=== PATIENT | female | born 1965 | race Caucasian/White ===

== ENCOUNTER 2024-04-30 01:12 | Emergency (ER) | payer OTHER, SELFPAY ==
[2024-04-30 01:25] VITALS: BP 119/87; PULSE 97; RESP 20; TEMP 36.6; O2SAT 99; BMI 37.9
--- NOTE | 2024-04-30 01:40 | ED.NURSE ---
pt given paper scrubs to wear since her clothes were covered in blood.
--- NOTE | 2024-04-30 02:11 | CRLHL7_ITS ---
For Patients: As a result of the Century Cures Act, medical imaging exams and procedure reports are released immediately into your electronic medical record. You may view this report before your referring provider. If you have questions, please contact your health care provider. INDICATION: Nausea, LLQ abdominal pain. TECHNIQUE: CT abdomen and pelvis acquired with 100 cc Omnipaque 370 IV contrast. COMPARISON: None. FINDINGS: Lower chest: Unremarkable. Liver: Left lobe cyst. Unremarkable in size and attenuation. No suspicious masses. Gallbladder and bile ducts: Cholecystectomy. No biliary dilatation. Pancreas: Unremarkable. No mass or inflammation. Spleen: Unremarkable. Normal in size. No masses. Adrenal glands: Unremarkable. No nodules. Kidneys: Unremarkable. No suspicious masses, stones, or hydronephrosis. GI tract: Multiple colonic diverticuli, but no substantial pericolonic inflammatory changes. Normal in caliber. No sign of mass or inflammation. Normal appendix. Vasculature: Abdominal aorta is normal in caliber. Mesenteric arteries are patent. Lymph nodes: No lymphadenopathy. Peritoneum/Abdominal Wall: Unremarkable. No sign of mass or infiltration. No free air or significant free fluid. Pelvis: Unremarkable. Bones: Unremarkable for age. IMPRESSION: No acute findings. Multiple colonic diverticuli, but no definite evidence of acute diverticulitis. Please note that all CT scans at this facility use dose modulation, iterative reconstruction, and/or weight-based dosing when appropriate to reduce radiation dose to as low as reasonably achievable. Dictated by Yonathan Shetty MD @ 04/30/2024 3:35:36 AM (Electronically Signed)
--- OUTSIDE RECORDS SUMMARY | 2024-04-30 02:27 | XMS_ITS | Encounter Summary ---
Author Organization [place] Address [address] [place] [address]. [place] [address] Care Team Providers Care Hull Inspector Name Role Phone Naomi Ramirez MD Primary Care Provider [phone] Naomi Ramirez MD Unavailable [phone] Fermín Casey PA-C Unavailable [phone] Iam Elkins PA-C Unavailable Severo Pritha PA-C Unavailable Severo Prithjae PA-C Unavailable Reason for Visit * Reason Comments Medication Refill Encounter Details Date Type Department Care Team (Late st Contact Info) Description 04/13/2024 [facility] [id number] [place] [id number] [place] [address] [place], [place] [id number] Medication Refill Social History Tobacco Use Types Packs/Day Years Used Date Smoking Tobacco: Never Smokeless Tobacco: Never Alcohol Use Standard Drinks/Week Comments Not Currently 2.5 (1 standard drink = 0.6 oz p ure alcohol) Social Connection and Isolat ion Panel [NHANES] Answer Date Recorded In a typical week, how many times do you talk on the phone with family, friends, or neighbors? More than three times a week 08/03/2023 How often do you get togethe r with friends or relatives? Once a week 08/03/2023 How often do you attend chur or buddhism services? More than 4 times per year 08/03/2023 Do you belong to any clubs o r organizations such as gnosticist groups, unions, fraternal or athletic groups, or school groups? Yes 08/03/2023 How often do you attend meet ings of the clubs or organizations you belong to? More than 4 times per year 08/03/2023 Are you , , di vorced, , never , or living with a partner? 08/03/2023 AUDIT-C Answer Date Recorded Q1: How often do you have a drink containing alcohol? Never 08/03/2023 Q2: How many drinks containi ng alcohol do you have on a typical day when you are drinking? Patient does not drink Q3: How often do you have si x or more drinks on one occasion? Never 08/03/2023 PHQ-2 Answer Date Recorded PHQ-2 Score 0 08/06/2023 [facility] - Occupational Stress Questionnaire Answer Date Recorded Do you feel stress - tense, restless, nervous, or anxious, or unable to sleep at night because your mind is troubled all the time - these days? Only a little 08/03/2023 Exercise Vital Sign Answer Date Recorde d On average, how many days pe r week do you engage in moderate to strenuous exercise (like a brisk walk)? 3 days 08/03/2023 On average, how many minutes do you engage in exercise at this level? 30 min 08/03/2023 Adolescent Education Answer Date Record ed Getting School Help Needed Not on file 04/14 Food Insecurity Answer Date Recorded Within the past 12 months, d id you worry that your food would run out before you got money to buy more? No 08/05/2023 Within the past 12 months, d id the food you bought just not last and you didn? t have money to get more? No 08/05/2023 Housing Stability Answer Date Recorded Do you have housing? (Housin g is defined as stable permanent housing and does not include staying ouside in a car, in a tent, in an abandoned building, in an overnight skilled nursing, or couch-surfing.) Yes 08/05/2023 Are you worried about losing your housing? No 08/05/2023 Financial Resource Strain Answer Date R ecorded Within the past 12 months, h ave you or your family members you live with been unable to get utilities (heat, electricity) when it was really needed? No 08/05/2023 Transportation Needs Answer Date Record ed Within the past 12 months, h as lack of transportation kept you from medical appointments, getting your medicines, non-medical meetings or appointments, work, or from getting things that you need? No 08/05/2023 Interpersonal Safety Answer Date Record ed Do you feel physically and e motionally safe where you currently live? Yes 08/06/2023 Within the past 12 months, h ave you been hit, slapped, kicked or otherwise physically hurt by someone? No 08/06/2023 Within the past 12 months, h ave you been humiliated or emotionally abused in other ways by your partner or ex-partner? No 08/06/2023 Sex and Gender Information Value Date Recorded Sex Assigned at Female 11/22/2021 5:35 PM CDT Gender Identity Female 11/22/2021 5:35 PM CDT Sexual Orientation Straight 11/22/2021 5: 35 PM CDT documented as of this encounter Plan of Treatment Upcoming Encounters Date Type Department Care Team (Late st Contact Info) Description 08/07/2024 4:30 PM RADIATION ENGINEER Office Visit [address] [phone] [place] [address] [place] [address] documented as of this encounter Visit Diagnoses Diagnosis Gastroesophageal reflux disease, unspecified whether esophagitis present documented in this encounter Care Teams Hull Inspector Relationship Specialty [place] [address] [place] [address] PCP - General Family Medicine 01/18/21 [place] [address] [place] [id number] Assigned PCP 01/23/21 Fermín Casey PA-C [id number] [place] [address] Physician Yeast Stacker Gastroenterology 09/21/22 Iam Elkins PA-C [id number] [place] [address] Physician Yeast Stacker Gastroenterology 11/10/22 Iam Elkins PA-C [id number] [place] [address] Physician Yeast Stacker Gastroenterology 02/27/23 Iam Elkins PA-C [id number] [place] [address] Assigned Gastroenterology Provider 08/16/23 04/13/24 documented as of this encounter
--- OUTSIDE RECORDS SUMMARY | 2024-04-30 02:27 | XMS_ITS | Clinical Summary ---
Author Organization [facility] Address [address] [place] [id number] Care Team Providers Care Char House Supervisor Name Role Phone Naomi Ramirez MD Primary Care Provider Naomi Ramirez MD Unavailable [phone] Fermín Casey-Tamela Unavailable [phone] Iam Elkins-Tamela Unavailable Iam Elkins PA-C Unavailable Allergies Active Allergy Reactions Criticality Noted Date Comments No Known Drug Allergy 11/19/2002 Medications Medication Sig Dispensed Refills Start Date End Date Status rizatriptan (MAXALT) 10 MG tablet Take 1 tablet (10 mg) by mouth at onset of headache for migraine 30 tablet 02/26/2014 Active cetirizine (ZYRTEC) 10 MG tablet Take 10 mg by mouth as needed Active ferrous sulfate (FEROSUL) 325 (65 Fe) MG tablet Take 1 tablet by mouth daily 07/20/2022 Active amitriptyline (ELAVIL) 50 MG tablet Take 50 mg by mouth At Bedtime Active propranolol (INDERAL) 20 MG tablet Take 20 mg by mouth every evening Active acetaminophen (TYLENOL) 500 MG tabletIndications :Ureteral stone Take 2 tablets (1,000 mg) by mouth every 6 hours as needed for mild pain 100 tablet 09/26/2022 Active ibuprofen (ADVIL/MOTRIN) 800 MG tabletIndications :Ureteral stone Take 1 tablet (800 mg) by mouth every 6 hours as needed 50 tablet 09/26/2022 Active levothyroxine (SYNTHROID/LEVOTH ROID) 100 MCG tabletIndications :Karson's thyroiditis Take 1 tablet (100 mcg) by mouth daily 90 tablet 3 08/06/2023 Active Continuous Blood Gluc Sensor (FREESTYLE HAL 3 SENSOR) MISCIndications:P rediabetes 1 Units every 14 days 6 each 1 08/06/2023 Active Continuous Blood Gluc Manager Web Application (FREESTYLE HAL 3 READER) DEVIIndications:P rediabetes 1 Units daily 1 each 08/06/2023 Active omeprazole (PRILOSEC) [address] capsuleIndication s:Gastroesophagea l reflux disease, unspecified whether esophagitis present TAKE 1 CAPSULE BY MOUTH EVERY DAY 90 capsule 04/14/2024 Active omeprazole (PRILOSEC) [address] capsuleIndication s:Gastroesophagea l reflux disease, unspecified whether esophagitis present Take 1 capsule (20 mg) by mouth daily 90 capsule 01/16/2024 Discontinued Active Problems Problem Noted Date Diagnosed Date Morbid obesity 01/19/2022 Pre-diabetes 07/05/2019 Karson's thyroiditis 02/10/2015 Overview: Following with [facility] in [place] Chronic headache disorder 03/17/2014 ACP (advance care planning) 01/12/2011 Overview: Advance Care Planning 12/15/2014: ACP Review and Resources Provided: Reviewed chart for advance care plan. Amie Solorio has no plan or code status on file however states presence of ACP document. Copy requested. Confirmed code status reflects current choices pending receipt of document/advance care plan review. Confirmed/documented legally designated decision maker(s). Added by Marleny Felipe Esophageal reflux 04/07/2006 Allergic rhinitis 11/19/2002 Overview: Problem list name updated by automated process. Provider to review Resolved Problems Problem Noted Date Diagnosed Date Resolved Date Health Halfway 10/31/2012 01/18/2021 Overview: State Tier Level: Tier 2 Status: NA Transformation Lead: See Letters for H Care Plan Endometriosis of ovary 07/08/201201/18 Essential hypertension, benign 05/23/2012 01/19/2022 CARDIOVASCULAR SCREENING; LD L GOAL LESS THAN 160 05/22/2010 01/18/2021 Esophageal reflux 11/16/2004 11/17/2004 Contusion of part of lower limb 11/19/2002 08/12/2009 Overview: Problem list name updated by automated process. Provider to review Contusion of chest wall 11/19/200207/24 Headache 11/19/2002 03/17/2014 Overview: Problem list name updated by automated process. Provider to review Severe obesity (BMI >= 40) 11/19/2002 0 01/19/2022 Encounters Date Type Department Care Team Description 04/14/2024 3:28 PM CDT - 04/14/2024 11:59 PM CDT Hospital Encounter [facility] [address], [address] [place] [phone] Naomi Ramirez MD Visit for screening mammogram Discharge Disposition: Home or Self Care 04/14/2024 Travel 04/13/[address] [phone] Naomi Ramirez MD Medication Refill 04/11/2024 Travel from Last 3 Months Immunizations Name Administration Dates Next Due COVID-19 MONOVALENT 12+ (Pfizer) 06/10/2021,09/20,09/17/2020 Influenza (H1N1) 08/12/2009 Influenza (IIV3) PF 05/02/2021, 2,04/22/2011, 010,05/11/2008,06/14/2007,06/19/2006,04/2003 Influenza Vaccine >6 months,quad, PF 11/2022,05/02/2022,05/16/2020, 019,04/23/2018,04/18/2016,04/28/2015,,04/21/2013 TD,PF 7+ (Teniva) 06/24/2018 TDAP Vaccine (Adacel) 03/17/2008 Varicella 10/28/1997,11/30/1988 Family History Medical History Relation Comments Heart Disease Brother 3 ascending aortic aneurysm Hypertension Father Glaucoma Maternal Grandfather Macular Degeneration Maternal Grandfather Macular Degeneration Maternal Grandmother Asthma Mother Hypertension Mother Breast Cancer No family hx of C.A.D. No family hx of Cancer - colorectal No family hx of Diabetes No family hx of Relation Status Comments Brother 1 Alive Brother 2 Alive Brother 3 Daughter 1 Alive Daughter 2 Alive Father Alive Maternal Grandfather Maternal Grandmother Mother Alive Social History Tobacco Use Types Packs/Day Years Used Date Smoking Tobacco: Never Smokeless Tobacco: Never Tobacco Cessation:Counseling Given: Not Answered Alcohol Use Standard Drinks/Week Comments Not Currently [...] 08/03/2023 How often do you attend chur ch or methodist services? More than 4 times per year 08/03/2023 Do you belong to any clubs o r organizations such as scientology groups, unions, fraternal or athletic groups, or [...] Answer Date Recorded PHQ-2 Score 0 08/06/2023 [facility] - Occupational Stress [...] Answer Date Recorded Do you have housing? (Louis g is defined as stable permanent housing and does not include staying ouside in a car, in a tent, in an abandoned building, in an overnight long term, or couch-surfing.) Yes 08/05/2023 Are you worried [...] Orientation Straight 11/22/2021 5: 35 PM CDT Last Filed Vital Signs Vital Sign Reading Time Taken Comments Blood Pressure 134/83 08/13/2023 10:02 AM GIMP BUTTONHOLE MACHINE OPERATOR Pulse 65 08/13/2023 10:02 AM GIMP BUTTONHOLE MACHINE OPERATOR Temperature 36.8 ??C (98.2 ??F) 08/13/2023 10:02 AM C Respiratory Rate 18 08/13/2023 10:02 AM GIMP BUTTONHOLE MACHINE OPERATOR Oxygen Saturation 100% 08/13/2023 10:02 AM GIMP BUTTONHOLE MACHINE OPERATOR Inhaled Oxygen Concentration - - Weight 108 kg (238 lb) 08/13/2023 10:02 AM GIMP BUTTONHOLE MACHINE OPERATOR Height 166.4 cm (5' 5.5) 08/06/2023 1:14 PM GIMP BUTTONHOLE MACHINE OPERATOR Body Mass Index 39 08/06/2023 1:14 PM GIMP BUTTONHOLE MACHINE OPERATOR Plan of Treatment Upcoming Encounters Date Type Department Care Team (Late st Contact Info) Description 08/07/2024 4:30 PM GIMP BUTTONHOLE MACHINE OPERATOR Office Visit [facility] [id number] [place] [phone] [place] [address] [place], [place] [phone] Health Maintenance Due Date Last Done Comments CT COLONOGRAPHY 1965 FIT 1965 FLEX SIG 1965 sDNA (Cologuard) 1965 ZOSTER IMMUNIZATION (1 of 2) 2015 ANNUAL REVIEW OF HM ORDERS 09/22/2023 09/21/2022, COVID-19 Vaccine ( season) 2024 06/10/2021, 10/06/2020, 09/17/2020 INFLUENZA VACCINE (#1) 2024 3, 05/02/2022, 05/02/2021, Additional history exists TSH W/FREE T4 REFLEX 08/06/2024 08/06/2023, 08/06/2023, 09/11/2022, Additional history exists YEARLY PREVENTIVE VISIT 08/06/2024 08/06/19 24, 07/05/2020, 07/04/2019, Additional history exists MAMMO SCREENING 04/14/2025 04/14/2024, 03/24, 12/27/2021, Additional history exists COLONOSCOPY 11/06/2025 11/06/2022, 10/21, 11/06/2022, Additional history exists COLORECTAL CANCER SCREENING 11/06/2025 GLUCOSE 08/13/2026 08/13/2023, 07/23, 09/27/2022, Additional history exists DTAP/TDAP/TD IMMUNIZATION (3 - Td or Tdap) 06/24/2028 06/24/2018, 03/17/2008 ADVANCE CARE PLANNING 08/06/2028 08/06/2023 , 12/15/2014, 01/12/2011, Additional history exists LIPID 08/06/2028 08/06/2023, 08/24, 07/05/2020, Additional history exists RSV VACCINE (1 - 1-dose 75+ series) 01/23/2040 PAP Discontinued 03/07/1995 HEPATITIS C SCREENING Completed 06/29/2018 HIV SCREENING Completed 06/29/2018 PHQ-2 (once per calendar year) Completed 08/06/2023, 09/21/2022, 08/28/2022, Additional history exists HEPATITIS B IMMUNIZATION Discontinued HPV IMMUNIZATION Aged Out No longer e ligible based on patient's age to complete this topic MENINGITIS IMMUNIZATION Aged Out No l onger eligible based on patient's age to complete this topic Pneumococcal Vaccine: Pediatrics (0 to 5 Years) and At-Risk Patients (6 to 64 Years) Aged Out No longer eligible based on patient's age to complete this topic RSV MONOCLONAL ANTIBODY Aged Out No l onger eligible based on patient's age to complete this topic Procedures Procedure Name Priority Date/Time Associated Diagnosis Comments MA SCREENING BILATERAL W/ DEVENDRA Routine 04/14/2024 4:18 PM CDT Visit for screening mammogram COMPREHENSIVE METABOLIC PANEL STAT 08/13/2023 10:34 AM GIMP BUTTONHOLE MACHINE OPERATOR TSH Routine 08/06/2023 2:00 PM GIMP BUTTONHOLE MACHINE OPERATOR Karson's thyroiditis LIPID REFLEX TO DIRECT LDL PANEL Routine 08/06/2023 2:00 PM GIMP BUTTONHOLE MACHINE OPERATOR Routine general medical examination at a health care facility COLONOSCOPY - HIM SCAN 12:00 AM CDT HIV 1/2 AGN JOSESITO 4TH GEN WITH REFLEX ([facility]) Routine 06/29/2018 9:17 AM GIMP BUTTONHOLE MACHINE OPERATOR Routine history and physical examination of adult HEPATITIS C ANTIBODY Routine 06/29/2018 9:17 AM GIMP BUTTONHOLE MACHINE OPERATOR Routine history and physical examination of adult ABSTRACT PAP (HIM EXTERNAL RESULT) Routine 03/07/1995 from Last 3 Months or Most Recently Relevant to Health Maintenance Results * MA Screen Bilateral w/Devendra (04/14/2024 4:18 PM CDT) Anatomical Region Laterality Modality Breast Bilateral Mammography Impressions 04/15/2024 8:05 AM CDT IMPRESSION: ACR BI-RADS Category 1: Negative BREAST CANCER SCREENING RECOMMENDATION: Routine yearly mammography beginning at age 40 or as discussed with your provider. The results and recommendations of this examination will be communicated to the patient. Jovi Hearn MD Narrative 04/15/2024 8:05 AM CDT BILATERAL FULL FIELD DIGITAL SCREENING MAMMOGRAM WITH TOMOSYNTHESIS Performed on: 04/14/24 Compared to: 04/11/2023 and 09/10/2015 Technique: ??This study was evaluated with the assistance of Computer-Aided Detection. ??Breast Tomosynthesis was used in interpretation. Findings: There are scattered areas of fibroglandular density. ??There is no radiographic evidence of malignancy. Naomi Ramirez MD IMG MAMMOGRAPHY O RDERABLES * (ABNORMAL) Comprehensive metabolic panel (08/13/2023 10:34 AM GIMP BUTTONHOLE MACHINE OPERATOR) Sodium 138 135 - 145 mmol/L 08/13/2023 11:06 AM GIMP BUTTONHOLE MACHINE OPERATOR [facility] Comment:Reference intervals for this test were updated on 04/17/2023 to more accurately reflect our healthy population. There may be differences in the flagging of prior results with similar values performed with this method. Interpretation of those prior results can be made in the context of the updated reference intervals. Potassium 4.5 3.4 - 5.3 mmol/L 08/13/2023 11:06 AM [facility] Carbon Dioxide (CO2) 30(H) 22 - 29 mmol/L 08/13/2023 11:06 AM [facility] Anion Gap 7 7 - 15 mmol/L 08/13/2023 11:06 AM [facility] Urea Nitrogen 16.9 6.0 - 20.0 mg/dL 08/13/2023 11:06 AM [facility] Creatinine 0.69 0.51 - 0.95 mg/dL 08/13/2023 11:06 AM [facility] GFR Estimate >90 >60 mL/min/1. 73m2 08/13/2023 11:06 AM [facility] Calcium 9.1 8.6 - 10.0 mg/dL 08/13/2023 11:06 AM [facility] Chloride 101 98 - 107 mmol/L 08/13/2023 11:06 AM [facility] Glucose 96 70 - 99 mg/dL 08/13/2023 11:06 AM [facility] Alkaline Phosphatase 78 40 - 150 U/L 08/13/2023 11:06 AM [facility] Comment:Reference intervals for this test were updated on 06/05/2023 to more accurately reflect our healthy population. There may be differences in the flagging of prior results with similar values performed with this method. Interpretation of those prior results can be made in the context of the updated reference intervals. AST 17 0 - 45 U/L 08/13/2023 11:06 AM [facility] Comment:Reference intervals for this test were updated on 01/01/2023 to more accurately reflect our healthy population. There may be differences in the flagging of prior results with similar values performed with this method. Interpretation of those prior results can be made in the context of the updated reference intervals. ALT 13 0 - 50 U/L 08/13/2023 11:06 AM [facility] Comment:Reference intervals for this test were updated on 01/01/2023 to more accurately reflect our healthy population. There may be differences in the flagging of prior results with similar values performed with this method. Interpretation of those prior results can be made in the context of the updated reference intervals. Protein Total 7.4 6.4 - 8.3 g/dL 08/13/2023 11:06 AM [facility] Albumin 4.3 3.5 - 5.2 g/dL 08/13/2023 11:06 AM GIMP BUTTONHOLE MACHINE OPERATOR [facility] Bilirubin Total 0.2 <=1.2 mg/dL 08/13/2023 11:06 AM GIMP BUTTONHOLE MACHINE OPERATOR [facility] Blood STRUCTURE OF RIGHT UPPER LIMB / Unknown Venipuncture / Unknown 08/13/2023 10:34 AM GIMP BUTTONHOLE MACHINE OPERATOR 08/13/2023 10:43 AM GIMP BUTTONHOLE MACHINE OPERATOR Chito Madsen MD LAB - BLOOD ORDERABLES [facility] [address] Lab (1st floor, no room number) [place] [address], [facility] [phone] * TSH (08/06/2023 2:00 PM GIMP BUTTONHOLE MACHINE OPERATOR) TSH 2.60 0.30 - 4.20 uIU/mL 08/06/2023 8:04 PM GIMP BUTTONHOLE MACHINE OPERATOR [facility] Blood BLOOD SPECIMEN / Unknown Venipuncture / Unknown 08/06/2023 2:00 PM GIMP BUTTONHOLE MACHINE OPERATOR 08/06/2023 2:02 PM GIMP BUTTONHOLE MACHINE OPERATOR Naomi Ramirez MD LAB - BLOOD ORDER NIKKY [facility] [place] [facility] [address] [facility] [address], [address] [address], [place] [phone] * (ABNORMAL) Lipid panel reflex to direct LDL Fasting (08/06/2023 2:00 PM GIMP BUTTONHOLE MACHINE OPERATOR) Cholesterol 219(H) <200 mg/dL 08/06/2023 8:04 PM GIMP BUTTONHOLE MACHINE OPERATOR [facility] Triglycerides 71 <150 mg/dL 08/06/2023 8:04 PM GIMP BUTTONHOLE MACHINE OPERATOR [facility] Direct Measure HDL 56 >=50 mg/dL 08/06/2023 8:04 PM GIMP BUTTONHOLE MACHINE OPERATOR [facility] LDL Cholesterol Calculated 149(H) <=100 mg/dL 08/06/2023 8:04 PM GIMP BUTTONHOLE MACHINE OPERATOR [facility] Non HDL Cholesterol 163(H) <130 mg/dL 08/06/2023 8:04 PM GIMP BUTTONHOLE MACHINE OPERATOR [facility] Patient Fasting > 8hrs? Yes 08/06/2023 8:04 PM GIMP BUTTONHOLE MACHINE OPERATOR [facility] Blood BLOOD SPECIMEN / Unknown Venipuncture / Unknown 08/06/2023 2:00 PM GIMP BUTTONHOLE MACHINE OPERATOR 08/06/2023 2:02 PM GIMP BUTTONHOLE MACHINE OPERATOR Narrative [facility] - 08/06/2023 8:04 PM GIMP BUTTONHOLE MACHINE OPERATOR Cholesterol Desirable: ??<200 mg/dL Triglycerides Normal: ??Less than 150 mg/dL Borderline High: ??150-199 mg/dL High: ??200-499 mg/dL Very High: ??Greater than or equal to 500 mg/dL Direct Measure HDL Female: ??Greater than or equal to 50 mg/dL Male: ??Greater than or equal to 40 mg/dL LDL Cholesterol Desirable: ??<100mg/dL Above Desirable: ??100-129 mg/dL Borderline High: ??130-159 mg/dL High: ??160-189 mg/dL Very High: ??>= 190 mg/dL Non HDL Cholesterol Desirable: ??130 mg/dL Above Desirable: ??130-159 mg/dL Borderline High: ??160-189 mg/dL High: ??190-219 mg/dL Very High: ??Greater than or equal to 220 mg/dL Naomi Ramirez MD LAB - BLOOD ORDER NIKKY [facility] [address] [facility], [address] [phone], [facility] [phone] * COLONOSCOPY - HIM SCAN (11/06/2022 12:00 AM CDT) 11/06/2022 Provider Outside PROCEDURES * HIV 1/2 Agn Josesito 4th Gen w Reflex ([facility]) (06/29/2018 9:17 AM GIMP BUTTONHOLE MACHINE OPERATOR) HIV 1/2 Agn Josesito 4th Gen With Reflex NON-REACT SESAR NON-REACT SESAR [facility] Comment: HIV-1 antigen and HIV-1/HIV-2 antibodies were not detected. There is no laboratory evidence of HIV infection. PLEASE NOTE: This information has been disclosed to you from records whose confidentiality may be protected by state law. ??If your state requires such protection, then the state law prohibits you from making any further disclosure of the information without the specific written consent of the person to whom it pertains, or as otherwise permitted by law. A general authorization for the release of medical or other information is NOT sufficient for this purpose. ?? For additional information please refer to http://education.[employer]/faq/ITB573 (This link is being provided for informational/ educational purposes only.) The performance of this assay has not been clinically validated in patients less than 2 years old. Blood specimen (specimen) 06/29/2018 9:17 AM GIMP BUTTONHOLE MACHINE OPERATOR 06/30/2018 1:10 AM GIMP BUTTONHOLE MACHINE OPERATOR Narrative Resulting Agency Comment Performing Organization Information: ? CB ? [facility] ? [address] [place] [address] ? Maldonado Batista M.D. Briana Faulkner MD LAB - NON-BEAKER BL OOD LABS Performing Organization Address City/[facility]/ZIP Co de Phone Number [facility] [address] [place] [address] * Hepatits C antibody ([facility]) (06/29/2018 9:17 AM GIMP BUTTONHOLE MACHINE OPERATOR) HCV Antibody NON-REACTI VE NON-REACTI VE [facility] SIGNAL TO CUT OFF - [facility] 0.01 <1.00 [facility] Blood specimen (specimen) 06/29/2018 9:17 AM GIMP BUTTONHOLE MACHINE OPERATOR 06/30/2018 1:10 AM GIMP BUTTONHOLE MACHINE OPERATOR Narrative Resulting Agency Comment Performing Organization Information: ? CB ? [facility] ? [address] [place] [address] ? Maldonado Batista M.D. Briana Faulkner MD LAB - BLOOD ORDERAB LES Performing Organization Address City/[facility]/ZIP Co de Phone Number [facility] [address] [place] [address] * ABSTRACT PAP-NO CHARGE (03/07/1995) Sarah Johnson LAB - HIM EXTERNAL R ESULT from Last 3 Months or Most Recently Relevant to Health Maintenance Advance Directives For more information, please contact: [phone] Documents on File Type Date Recorded Patient Flight Simulator Teacher Expl anation Advance Directives and Living Will 01/12/2011 * Full Code (Latest Code Status on File) Date Activated Date Inactivated Comments 09/26/2022 7:26 AM 09/27/2022 12:30 PM All basic and advanced life-sustaining interventions are performed as appropriate Question Answer Comments Code status determined by: Discussion with patie nt/ legal decision maker * Full Code Date Activated Date Inactivated Comments 07/08/2012 2:54 PM 07/11/2012 1:39 PM Care Teams Char House Supervisor Relationship Specialty [place] [address] [place] [place] [address] PCP - General Family Medicine 01/18/21 [place] [address] [place] [address] Assigned PCP 01/23/21 Fermín Casey PA-C [address] [place] [address] Physician Manager Location Gastroenterology 09/21/22 Iam Elkins PA-C [address] [place] [address] Physician Manager Location Gastroenterology 11/10/22 Iam Elkins PA-C [address] [place] [address] Physician Manager Location Gastroenterology 02/27/23
--- OUTSIDE RECORDS SUMMARY | 2024-04-30 02:27 | XMS_ITS | Encounter Summary ---
Author Organization [place] Address [address] [place] [address] Care Team Providers Care Therapeutic Specialist Name Role Phone Naomi Ramirez MD Primary Care Provider [phone] Naomi Ramirez MD Unavailable [phone] Fermín Casey PA-C Unavailable [phone] Iam Elkins PA-C Unavailable Iam Elkins PA-C Unavailable Reason for Referral * Diagnostic Imaging Mammo (Routine) - Pending Review Specialty Diagnoses / Procedures Referred By Spencer howe Referred To Contact Radiology. Diagnoses Visit for screening mammogram Procedures MA Screen Bilateral w/[place] [address] [place] [address] Referral ID Status Reason Start Date Expiration Date V isits Requested Visits Authorized [id number] Pending Review 03/14/2024 03/14/2025 1 1 Reason for Visit * Diagnostic Imaging Mammo (Routine) - Pending Review Specialty Diagnoses / Procedures Referred By Spencer howe Referred To Contact Radiology. Diagnoses Visit for screening mammogram Procedures MA Screen Bilateral w/[place] [address] [place] [address] Referral ID Status Reason Start Date Expiration Date V isits Requested Visits Authorized [id number] Pending Review 03/14/2024 03/14/2025 1 1 Encounter Details Date Type Department Care Team (Latest Contact Info) Description 04/14/2024 3:28 PM CDT - 04/14/2024 11:59 PM CDT Hospital Encounter [facility] [address], [address] [place] [phone] [place] [address] [place] [address] Visit for screening mammogram Discharge Disposition: Home or Self Care Social History Tobacco Use Types Packs/Day Years [...] often do you attend chur ch or orthodoxy services? More than 4 times per year 08/03/2023 Do you belong to any clubs o r organizations such as mormonism groups, unions, fraternal or athletic groups, or [...] Answer Date Recorded PHQ-2 Score 0 08/06/2023 [facility] - Occupational Stress Questionnaire Answer Date Recorded [...] in an abandoned building, in an overnight nursing home, or couch-surfing.) Yes 08/05/2023 Are you worried [...] PM CDT documented as of this encounter Medications at Time of Discharge Medication Sig Dispensed Refills Start Date End Date acetaminophen (TYLENOL) 500 MG tabletIndications:Ureter al stone Take 2 tablets (1,000 mg) by mouth every 6 hours as needed for mild pain 100 tablet 09/26/2022 amitriptyline (ELAVIL) 50 MG tablet Take 50 mg by mouth At Bedtime cetirizine (ZYRTEC) 10 MG tablet Take 10 mg by mouth as needed Continuous Blood Gluc [facility] (FREESTYLE HAL 3 READER) DEVIIndications:Prediabe praveen 1 Units daily 1 each 08/06/2023 Continuous Blood Gluc Sensor (FREESTYLE HAL 3 SENSOR) MISCIndications:Prediabe praveen 1 Units every 14 days 6 each 1 08/06/2023 ferrous sulfate (FEROSUL) 325 (65 Fe) MG tablet Take 1 tablet by mouth daily 07/20/2022 ibuprofen (ADVIL/MOTRIN) 800 MG tabletIndications:Ureter al stone Take 1 tablet (800 mg) by mouth every 6 hours as needed 50 tablet 09/26/2022 levothyroxine (SYNTHROID/LEVOTHROID) 100 MCG tabletIndications:Hashim shelia's thyroiditis Take 1 tablet (100 mcg) by mouth daily 90 tablet 3 08/06/2023 omeprazole (PRILOSEC) [address] capsuleIndications:Gastr oesophageal reflux disease, unspecified whether esophagitis present TAKE 1 CAPSULE BY MOUTH EVERY DAY 90 capsule 04/14/2024 propranolol (INDERAL) 20 MG tablet Take 20 mg by mouth every evening rizatriptan (MAXALT) 10 MG tablet Take 1 tablet (10 mg) by mouth at onset of headache for migraine 30 tablet 02/26/2014 documented as of this encounter Plan of Treatment Upcoming Encounters Date Type Department Care Team (Late st Contact Info) Description 08/07/2024 4:30 PM GL ACCOUNTANT Office Visit [facility] [address] [place] [address] [place] [address] [place] [address] documented as of this encounter Procedures Procedure Name Priority Date/Time Associated Diagnosis Comments MA SCREENING BILATERAL W/ BRIDGETT Routine 04/14/2024 4:18 PM CDT Visit for screening mammogram documented in this encounter Results * MA Screen Bilateral w/Bridgett (04/14/2024 4:18 PM CDT) Anatomical Region Laterality [...] Naomi Ramirez MD IMG MAMMOGRAPHY O RDERABLES documented in this encounter Visit Diagnoses Diagnosis Visit for screening mammogram Other screening mammogram documented in this encounter Care Teams Therapeutic Specialist Relationship Specialty [place] [address] [place] [address] PCP - General Family Medicine 01/18/21 [place] [address] [place] [address] Assigned PCP 01/23/21 Fermín Casey PA-C [address] [place] [address] Physician Laundry Route Driver Gastroenterology 09/21/22 Iam Elkins PA-C [address] [place] [address] [address] Laundry [address] Driver Gastroenterology 11/10/22 Iam Elkins PA-C [address] [place] [address] Physician Laundry Route Driver Gastroenterology 02/27/23 documented as of this encounter
--- OUTSIDE RECORDS SUMMARY | 2024-04-30 02:27 | XMS_ITS | Referral Summary ---
Author Organization [place] Address [address] [place] [address] Care Team Providers Care Medical Assistant Instructor Name Role Phone Naomi Ramirez MD Primary Care Provider [phone] Naomi Ramirez MD Unavailable Fermín Casey PA-C Unavailable [phone] Iam Elkins PA-C Unavailable Iam Elkins-C Unavailable Encounters Date Type Department Care Team Description 04/14/2024 Travel 04/14/2024 3:28 PM CDT - 04/14/2024 11:59 PM CDT Hospital Encounter [facility] [address], [address] [place] [phone] Naomi Ramirez MD Visit for screening mammogram Discharge Disposition: Home or Self Care 04/13/[address] [address] Naomi Ramirez MD Medication Refill 04/11/2024 Travel from Last 3 Months Allergies Active Allergy Reactions Criticality Noted Date [...] each 1 08/06/2023 Active Continuous Blood Gluc Fishing Rod Marker (FREESTYLE HAL 3 READER) DEVIIndications:P rediabetes 1 Units daily 1 each 08/06/2023 Active omeprazole (PRILOSEC) [address] capsuleIndication s:Gastroesophagea l reflux disease, unspecified whether esophagitis present TAKE 1 CAPSULE BY MOUTH EVERY DAY 90 capsule 04/14/2024 Active omeprazole (PRILOSEC) [address] capsuleIndication s:Gastroesophagea l reflux disease, unspecified whether esophagitis present Take 1 capsule (20 mg) by mouth daily 90 capsule 01/16/2024 4 Discontinued Active Problems Problem Noted Date Diagnosed [...] Noted Date Diagnosed Date Resolved Date Health Snf 10/31/2012 01/18/2021 Overview: State Tier Level: Tier 2 Status: NA Hackler Doll Wigs: See Letters for [facility] Care Plan Endometriosis of ovary 07/08/201201/18 Essential [...] obesity (BMI >= 40) 11/19/2002 0 01/19/2022 Immunizations Name Administration Dates Next Due COVID-19 MONOVALENT 12+ (Pfizer) 06/10/2021,09/20,09/17/2020 Influenza (H1N1) 08/12/2009 Influenza (IIV3) PF 05/02/2021, 2,04/22/2011, 010,05/11/2008,06/14/2007,06/19/2006,04/2003 Influenza Vaccine >6 months,quad, PF 11/2022,05/02/2022,05/16/2020, 019,04/23/2018,04/18/2016,04/28/2015,,04/21/2013 TD,PF 7+ ([facility]) 06/24/2018 TDAP Vaccine (Adacel) 03/17/2008 Varicella 10/28/1997,11/30/1988 Social History Tobacco Use Types Packs/Day Years [...] How often do you attend chur or restorationism services? More than 4 times per year 08/03/2023 Do you belong to any clubs o r organizations such as shinto groups, unions, fraternal or athletic groups, or [...] Answer Date Recorded PHQ-2 Score 0 08/06/2023 [facility] - [...] Date Recorded Do you have housing? (Louis vazquez is defined as stable permanent housing and does not include staying ouside in a car, in a tent, in an abandoned building, in an overnight detention, or couch-surfing.) Yes 08/05/2023 Are you worried [...] Comments Blood Pressure 134/83 08/13/2023 10:02 AM JUNIOR TECHNICAL WRITER Pulse 65 08/13/2023 10:02 AM JUNIOR TECHNICAL WRITER Temperature 36.8 ??C (98.2 ??F) 08/13/2023 10:[address] Respiratory Rate 18 08/13/2023 10:02 AM JUNIOR TECHNICAL WRITER Oxygen Saturation 100% 08/13/2023 10:02 AM JUNIOR TECHNICAL WRITER Inhaled Oxygen Concentration - - Weight 108 kg (238 lb) 08/13/2023 10:02 AM JUNIOR TECHNICAL WRITER Height 166.4 cm (5' 5.5) 08/06/2023 1:14 PM JUNIOR TECHNICAL WRITER Body Mass Index 39 08/06/2023 1:14 PM JUNIOR TECHNICAL WRITER Plan of Treatment Upcoming Encounters Date Type Department Care Team (Late st Contact Info) Description 08/07/2024 4:30 PM JUNIOR TECHNICAL WRITER Office Visit [facility] [address] [place] [phone] [place] [address] [place] [address] Procedures Procedure Name Priority Date/Time Associated Diagnosis Comments MA SCREENING BILATERAL W/ DEVENDRA Routine 04/14/2024 4:18 PM CDT Visit for screening mammogram COMPREHENSIVE METABOLIC PANEL STAT 08/13/2023 10:34 AM JUNIOR TECHNICAL WRITER TSH Routine 08/06/2023 2:00 PM JUNIOR TECHNICAL WRITER Karson's thyroiditis LIPID REFLEX TO DIRECT LDL PANEL Routine 08/06/2023 2:00 PM JUNIOR TECHNICAL WRITER Routine general medical examination at a health care facility COLONOSCOPY - HIM SCAN 12:00 AM CDT HIV 1/2 AGN JOSESITO 4TH GEN WITH REFLEX ([facility]) Routine 06/29/2018 9:17 AM JUNIOR TECHNICAL WRITER Routine history and physical examination of adult HEPATITIS C ANTIBODY Routine 06/29/2018 9:17 AM JUNIOR TECHNICAL WRITER Routine history and physical examination of adult [...] (ABNORMAL) Comprehensive metabolic panel (08/13/2023 10:34 AM JUNIOR TECHNICAL WRITER) Sodium 138 135 - 145 mmol/L 08/13/2023 11:06 AM [facility] Comment:Reference intervals for this test were updated on 04/17/2023 to more accurately reflect our healthy population. There may be differences in the flagging of prior results with similar values performed with this method. Interpretation of those prior results can be made in the context of the updated reference intervals. Potassium 4.5 3.4 - 5.3 mmol/L 08/13/2023 11:06 AM [facility] Carbon Dioxide (CO2) 30(H) 22 - 29 mmol/L 08/13/2023 11:06 AM [facility] Anion Gap 7 7 - 15 mmol/L 08/13/2023 11:06 AM [facility] Urea Nitrogen 16.9 6.0 - 20.0 mg/dL 08/13/2023 11:06 AM [facility] Creatinine 0.69 0.51 - 0.95 mg/dL 08/13/2023 11:06 AM [facility] GFR Estimate >90 >60 mL/min/1. 73m2 08/13/2023 11:06 AM [facility] Calcium 9.1 8.6 - 10.0 mg/dL 08/13/2023 11:06 AM [facility] Chloride 101 98 - 107 mmol/L 08/13/2023 11:06 AM JUNIOR TECHNICAL WRITER LABORATORY Glucose 96 70 - 99 mg/dL 08/13/2023 11:06 AM JUNIOR TECHNICAL WRITER [facility] Alkaline Phosphatase 78 40 - 150 U/L 08/13/2023 11:06 AM JUNIOR TECHNICAL WRITER [facility]ORATORY Comment:Reference intervals for this test were updated on 06/05/2023 to more accurately reflect our healthy population. There may be differences in the flagging of prior results with similar values performed with this method. Interpretation of those prior results can be made in the context of the updated reference intervals. AST 17 0 - 45 U/L 08/13/2023 11:06 AM JUNIOR TECHNICAL WRITER [facility] Comment:Reference intervals for this test were updated on 01/01/2023 to more accurately reflect our healthy population. There may be differences in the flagging of prior results with similar values performed with this method. Interpretation of those prior results can be made in the context of the updated reference intervals. ALT 13 0 - 50 U/L 08/13/2023 11:06 AM JUNIOR TECHNICAL WRITER LABORATORY Comment:Reference intervals for this test were updated on 01/01/2023 to more accurately reflect our healthy population. There may be differences in the flagging of prior results with similar values performed with this method. Interpretation of those prior results can be made in the context of the updated reference intervals. Protein Total 7.4 6.4 - 8.3 g/dL 08/13/2023 11:06 AM JUNIOR TECHNICAL WRITER LABORATORY Albumin 4.3 3.5 - 5.2 g/dL 08/13/2023 11:06 AM JUNIOR TECHNICAL WRITER LABORATORY Bilirubin Total 0.2 <=1.2 mg/dL 08/13/2023 11:06 AM [facility] Blood STRUCTURE OF RIGHT UPPER LIMB / Unknown Venipuncture / Unknown 08/13/2023 10:34 AM JUNIOR TECHNICAL WRITER 08/13/2023 10:43 AM JUNIOR TECHNICAL WRITER Chito Madsen MD LAB - BLOOD ORDERABLES LABORATORY [facility] Lab [address] [facility] Lab (1st floor, no room number) [place] [address], [facility] [phone] * TSH (08/06/2023 2:00 PM JUNIOR TECHNICAL WRITER) TSH 2.60 0.30 - 4.20 uIU/mL 08/06/2023 8:04 PM JUNIOR TECHNICAL WRITER [facility] Blood BLOOD SPECIMEN / Unknown Venipuncture / Unknown 08/06/2023 2:00 PM JUNIOR TECHNICAL WRITER 08/06/2023 2:02 PM JUNIOR TECHNICAL WRITER Naomi Ramirez MD LAB - BLOOD ORDER NIKKY [facility] [place] [facility] [address] [facility], [address] [place] [address], [facility] [phone] * (ABNORMAL) Lipid panel reflex to direct LDL Fasting (08/06/2023 2:00 PM JUNIOR TECHNICAL WRITER) Cholesterol 219(H) <200 mg/dL 08/06/2023 8:04 PM JUNIOR TECHNICAL WRITER [facility] Triglycerides 71 <150 mg/dL 08/06/2023 8:04 PM JUNIOR TECHNICAL WRITER [facility] Direct Measure HDL 56 >=50 mg/dL 08/06/2023 8:04 PM JUNIOR TECHNICAL WRITER [facility] LDL Cholesterol Calculated 149(H) <=100 mg/dL 08/06/2023 8:04 PM JUNIOR TECHNICAL WRITER [facility] Non HDL Cholesterol 163(H) <130 mg/dL 08/06/2023 8:04 PM JUNIOR TECHNICAL WRITER [facility] Patient Fasting > 8hrs? Yes 08/06/2023 8:04 PM JUNIOR TECHNICAL WRITER [facility] Blood BLOOD SPECIMEN / Unknown Venipuncture / Unknown 08/06/2023 2:00 PM JUNIOR TECHNICAL WRITER 08/06/2023 2:02 PM JUNIOR TECHNICAL WRITER Narrative [facility] - 08/06/2023 8:04 PM JUNIOR TECHNICAL WRITER Cholesterol Desirable: ??<200 mg/dL Triglycerides Normal: ??Less [...] LAB - BLOOD ORDER NIKKY [facility] [place] [facility] [address] [facility] [address] [facility], [address] [place] [address], [facility] [phone] * COLONOSCOPY - HIM SCAN (11/06/2022 12:00 AM CDT) 11/06/2022 Provider Outside PROCEDURES * HIV 1/2 Agn Josesito 4th Gen w Reflex ([facility]) (06/29/2018 9:17 AM JUNIOR TECHNICAL WRITER) HIV 1/2 Agn Josesito 4th Gen With Reflex NON-REACT SESAR NON-REACT SESAR [facility] Comment: HIV-1 antigen and HIV-1/HIV-2 antibodies were [...] ?? For additional information please refer to http://education.[employer]/faq/QIA089 (This link is being provided for informational/ educational purposes only.) The performance of this assay has not been clinically validated in patients less than 2 years old. Blood specimen (specimen) 06/29/2018 9:17 AM JUNIOR TECHNICAL WRITER 06/30/2018 1:10 AM JUNIOR TECHNICAL WRITER Narrative Resulting Agency Comment Performing Organization Information: ? CB ? [facility] ? [address] [place] [address] ? Maldonado Batista M.D. Briana Faulkner MD LAB - NON-BEAKER BL OOD LABS Performing Organization Address City/[facility]/ZIP Co de Phone Number [facility] [address] [place] [address] * Hepatits C antibody ([facility]) (06/29/2018 9:17 AM JUNIOR TECHNICAL WRITER) HCV Antibody NON-REACTI VE NON-REACTI VE [facility] SIGNAL TO CUT OFF - [facility] 0.01 <1.00 [facility] Blood specimen (specimen) 06/29/2018 9:17 AM JUNIOR TECHNICAL WRITER 06/30/2018 1:10 AM JUNIOR TECHNICAL WRITER Narrative Resulting Agency Comment Performing Organization Information: ? CB ? [facility] ? [address] [facility] [place] [address] ? Maldonado Batista M.D. 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 Expl anation Advance Directives and Living Will [...] 2:54 PM 07/11/2012 1:39 PM Care Teams Medical Assistant Instructor Relationship Specialty [place] [address] [place] [address] PCP - General Family Medicine 01/18/21 [place] [address] [place] [address] Assigned PCP 01/23/21 Fermín Casey PA-C [address] [place] [address] Physician Press Shop Supervisor Gastroenterology 09/21/22 Iam Elkins PA-C [address] [place] [address] Physician Press Shop Supervisor Gastroenterology 11/10/22 Iam Elkins PA-C [address] [place] [address] Physician Press Shop Supervisor Gastroenterology 02/27/23
--- OUTSIDE RECORDS SUMMARY | 2024-04-30 02:27 | XMS_ITS | Encounter Summary ---
Author Organization [place] Address [address] [place] [address] Care Team Providers Care Advertising Analyst Name Role Phone Naomi Ramirez MD Primary Care Provider [phone] Naomi Ramirez MD Unavailable [phone] Fermín Casey-Tamela Unavailable [phone] Iam Elkins-Tamela Unavailable Iam Elkins PA-C Unavailable Encounter Details Date Type Department Care Team (Latest Contact Info) Description 04/14/2024 Travel Social History Tobacco Use Types Packs/Day Years [...] often do you attend chur ch or holiness services? More than 4 times per year 08/03/2023 Do you belong to any clubs o r organizations such as buddhism groups, unions, fraternal or athletic groups, or [...] Answer Date Recorded PHQ-2 Score 0 08/06/2023 [facility] - Occupational [...] st Contact Info) Description 08/07/2024 4:30 PM CAR DESIGNER Office Visit [facility] [address] [place] [address] [place] [address] [place] [address] documented as of this encounter Visit Diagnoses Not on filedocumented in this encounter Care Teams Advertising Analyst Relationship Specialty [place] [address] [place] [address] PCP - General Family Medicine 01/18/21 [place] [address] [place] [address] Assigned PCP 01/23/21 Fermín Casey PA-C [address] [place] [address] Physician Patient Support Partner Gastroenterology 09/21/22 Iam Elkins PA-C [address] [place] [address] Physician Patient Support Partner Gastroenterology 11/10/22 Iam Elkins PA-C [address] [place] [address] Physician Patient Support Partner Gastroenterology 02/27/23 documented as of this encounter
--- OUTSIDE RECORDS SUMMARY | 2024-04-30 02:28 | XMS_ITS | Encounter Summary ---
Author Organization [place] Address [address] [place] [address] Care Team Providers Care Steward/Stewardess Second Class Name Role Phone Briana Faulkner MD Primary Care Provider Unav ailable Briana Faulkner MD Unavailable UnavailYana Linares PA-C Unavailable + [phone] Yana Mckeon-C Unavailable + [phone] Briana Faulkner MD Unavailable Unavailabl Valery Baumann MD Unavailable [phone] Valery Jacques MD Primary Care Provider Naomi Ramirez MD Primary Care Provider [phone] Naomi Ramirez MD Unavailable [phone] Fermín Casey PA-C Unavailable [phone] Iam Elkins PA-C Unavailable Iam Elkins PA-C Unavailable Iam Elkins PA-C Unavailable Reason for Visit * Reason Onset Date Comments Orders 08/10/2014 Encounter Details Date Type Department Care Team (Late st Contact Info) Description 08/10/2014 MyC Medical Advice [facility] [address] [place] [address] [address] [place] [phone] Maria Antonia Gonzalez Social History Tobacco Use Types Packs/Day Years Used Date Smoking Tobacco: Never Smokeless Tobacco: Never Alcohol Use Standard Drinks/Week Comments Yes 2.5 (1 standard drink = 0.6 oz p ure alcohol) wine, few weekly Sex and Gender Information Value Date Recorded Sex Assigned at Female 11/22/2021 5:35 PM CDT Gender Identity Female 11/22/2021 5:35 PM CDT Sexual Orientation Straight 11/22/2021 5: 35 PM CDT documented as of this encounter Miscellaneous Notes * Telephone Encounter - An Noel I - 08/10/2014 3:31 PM CSTFrom: Amie Solorio To: Briana Faulkner MD Sent: 08/10/2014 3:19 PM TRAINER Subject: Thyroid Panel Briana, I am wondering (after reading on-line) if you could run a full thyroid panel on my blood? Of coursereading more about Hypothyroidism, and it's symptoms, besides the constipation I feel that I have several (maybe) and they say that a thyroid panel maybe necessary to find out if this is what it is. Let me know what you think. Thank you, Amie NER documented in this encounter Plan of Treatment Upcoming Encounters Date Type Department Care Team (Late st Contact Info) Description 08/07/2024 4:30 PM TRAINER Office Visit [facility] [address] [place] [phone] [place] [address] [place] [address] documented as of this encounter Visit Diagnoses Not on filedocumented in this encounter Care Teams Steward/Stewardess Second Class Relationship Specialty Start Date End Date Briana Faulkner MD PCP - General 08/16/09 12/28/19 Valery Jacques MD [address] , [facility] [address] [place] [address] PCP - General Family Practice 12/29/19 01/17/21 [place] [address] [place] [address] PCP - General Family Medicine 01/18/21 Briana Faulkner MD NO INFO AVAILABLE 02/15/23 Assigned PCP 07/13/19 07/19/19 Yana Mckeon PA-C [address], [facility] [address] [place] [address] Assigned PCP 07/20/19 09/06/19 Yana Mckeon PA-C [address], [address] [address] Assigned PCP 06/29/19 07/12/19 Briana Faulkner MD NO INFO AVAILABLE 02/15/23 Assigned PCP 06/03/17 06/28/19 Valery Jacques MD [address], [address] [address] Assigned PCP 09/07/19 01/22/21 [place] [address] [place] [address] Assigned PCP 01/23/21 Fermín Casey PA-C [address] [place] [id number] Physician Hot Air Furnace Installer And Repairer Gastroenterology 09/21/22 Iam Elkins PA-C [address] [facility] [place] [address] Physician Hot Air Furnace Installer And Repairer Gastroenterology 11/10/22 Iam Elkins PA-C [address] [place] [address] Physician Hot Air Furnace Installer And Repairer Gastroenterology 02/27/23 Iam Elkins PA-C [address] [place] [address] Assigned Gastroenterology Provider 08/16/23 04/13/24 documented as of this encounter
--- OUTSIDE RECORDS SUMMARY | 2024-04-30 02:28 | XMS_ITS | Encounter Summary ---
Author Organization [facility] Address [address] [place] [address] Care Team Providers Care Respiratory Support Technician Name Role Phone Briana Faulkner MD Primary Care Provider Unav ailable Briana Faulkner MD Unavailable UnavailYana Linares PA-C Unavailable + [phone] Yana Mckeon PA-C Unavailable + [phone] Briana Faulkner MD Unavailable Unavailabl Valery Baumann MD Unavailable [phone] Valery Jacques MD Primary Care Provider [phone] Naomi Ramirez MD Primary Care Provider [phone] Naomi Ramirez MD Unavailable [phone] Fermín Casey PA-C Unavailable [phone] Iam Elkins PA-C Unavailable Juliana Elkinsthjae PA-C Unavailable Juliana Elkinsthjae PA-C Unavailable Encounter Details Date Type Department Care Team (Late st Contact Info) Description 05/05/2015 MyC Medical Advice [facility] Physicians [address] [place] [address] [address] [place] [phone] Briana Faulkner MD NO INFO AVAILABLE 02/15/23 Social History Tobacco Use Types Packs/Day Years [...] st Contact Info) Description 08/07/2024 4:30 PM DIRECTOR DIGITAL SALES Office [facility] [address] [place] [address] [place] [address] [place] [address] documented as of this encounter Visit Diagnoses Not on filedocumented in this encounter Care Teams Respiratory Support Technician Relationship Specialty Start Date End Date Briana Faulkner MD PCP - General 08/16/09 12/28/19 Valery Jacques MD [address] , [address] [address] PCP - General Family Practice 12/29/19 01/17/21 [place] [address] [place] [address] PCP - General Family Medicine 01/18/21 Briana Faulkner MD NO INFO AVAILABLE 02/15/23 Assigned PCP 07/13/19 07/19/19 Yana Mckeon PA-C [address] , [address] [address] Assigned PCP 07/20/19 09/06/19 Yana Mckeon PA-C [address], [address] [place] [address] Assigned PCP 06/29/19 07/12/19 Briana Faulkner MD NO INFO AVAILABLE 02/15/23 Assigned PCP 06/03/17 06/28/19 Valery Jacques MD [address], [address] [place] [address] Assigned PCP 09/07/19 01/22/21 [place] [address] [place] [address] Assigned PCP 01/23/21 Fermín Casey PA-C [address] [facility] [place] [address] Physician Fondant Machine Operator Gastroenterology 09/21/22 Iam Elkins PA-C [address] [place] [address] Physician Fondant Machine Operator Gastroenterology 11/10/22 Iam Elkins PA-C [address] [place] [address] Physician Fondant Machine Operator Gastroenterology 02/27/23 Iam Elkins PA-C [address] [facility] [place] [address] Assigned Gastroenterology Provider 08/16/23 04/13/24 documented as of this encounter
--- OUTSIDE RECORDS SUMMARY | 2024-04-30 02:28 | XMS_ITS | Encounter Summary ---
Author Organization [facility] Address [address] [place] [address] Care Team Providers Care Weld Lay Out Worker Name Role Phone Briana Faulkner MD Primary Care Provider Unav ailable Briana Faulkner MD Unavailable UnavailYana Linares PA-C Unavailable + [phone] Yana Mckeon-C Unavailable + [phone] Briana Faulkner MD Unavailable Unavailabl Valery Baumann MD Unavailable [phone] Valery Jacques MD Primary Care Provider [phone] Naomi Ramirez MD Primary Care Provider [phone] Naomi Ramirez MD Unavailable [phone] Fermín Casey PA-C Unavailable [phone] Iam Elkins PA-C Unavailable Iam Elkins PA-C Unavailable Iam Elkins PA-C Unavailable Encounter Details Date Type Department Care Team (Late st Contact Info) Description 02/26/2014 MyC Medical Advice [facility] Physicians [address] [place] [phone] Maria Antonia Gonzalez Social History Tobacco Use [...] st Contact Info) Description 08/07/2024 4:30 PM SAP GATHERER Office Visit [facility] [address] [place] [address] [place] [address] [place] [address] documented as of this encounter Visit Diagnoses Not on filedocumented in this encounter Care Teams Weld Lay Out Worker Relationship Specialty Start Date End Date Briana Faulkner MD PCP - General 08/16/09 12/28/19 Valery Jacques MD [address] , [address] [address] PCP - General Family Practice 12/29/19 01/17/21 [place] [address] [place] [address] PCP - General Family Medicine 01/18/21 Briana Faulkner MD NO INFO AVAILABLE 02/15/23 Assigned PCP 07/13/19 07/19/19 Yaan Mckeon PA-C [address] , [address] [address] Assigned PCP 07/20/19 09/06/19 Yana Mckeon PA-C [address], [address] [place] [address] Assigned PCP 06/29/19 07/12/19 Briana Faulkner MD NO INFO AVAILABLE 02/15/23 Assigned PCP 06/03/17 06/28/19 Valery Jacques MD [address], [address] [place] [address] Assigned PCP 09/07/19 01/22/21 [place] [address] [place] [address] Assigned PCP 01/23/21 Fermín Casey PA-C [address] [place] [address] Physician Differential Repairer Gastroenterology 09/21/22 Iam Elkins PA-C [address] [place] [address] Physician Differential Repairer Gastroenterology 11/10/22 Iam Elkins PA-C [address] [place] [address] Physician Differential Repairer Gastroenterology 02/27/23 Iam Elkins PA-C [address] [place] [address] Assigned Gastroenterology Provider 08/16/23 04/13/24 documented as of this encounter
--- OUTSIDE RECORDS SUMMARY | 2024-04-30 02:28 | XMS_ITS | Encounter Summary ---
Author Organization [facility] Address [address] [place] [address]. [place] [address] Care Team Providers Care Marine Photographer Name Role Phone Naomi Ramirez MD Primary Care Provider [phone] Naomi Ramirez MD Unavailable [phone] Fermín Casey PA-C Unavailable [phone] Iam Elkins PA-C Unavailable Severo Pritha PA-C Unavailable Severo Pritha PA-C Unavailable Encounter Details Date Type Department Care Team (Late st Contact Info) Description 09/01/2022 [facility] Medical Advice [facility] [address] [place] [address] [place] [address] [place] [address] Social History Tobacco Use Types Packs/Day Years Used Date Smoking Tobacco: Never Smokeless Tobacco: Never Alcohol Use Standard Drinks/Week Comments Not Currently 2.5 (1 standard drink = 0.6 oz p ure alcohol) Overall Financial Resource Strain (CARDIA) Ambrosio kwok Date Recorded How hard is it for you to pa y for the very basics like food, housing, medical care, and heating? Not hard at all 01/01/2020 PHQ-2 Answer Date Recorded PHQ-2 Score 0 08/28/2022 Hunger Vital Sign Answer Date Recorded Within the past 12 months, y ou worried that your food would run out before you got the money to buy more. Never true 01/01/20 20 Within the past 12 months, t he food you bought just didn't last and you didn't have money to get more. Never true 01/01/2020 PRAPARE - Transportation Answer Date Re corded In the past 12 months, has l ack of transportation kept you from medical appointments or from getting medications? No 12/21 In the past 12 months, has l ack of transportation kept you from meetings, work, or from getting things needed for daily living? No 01/01/2020 Sex and Gender Information Value Date Recorded Sex Assigned at Female 11/22/2021 5:35 PM CDT Gender Identity Female 11/22/2021 5:35 PM CDT Sexual Orientation Straight 11/22/2021 5: 35 PM CDT COVID-19 Exposure Response Date Recorded In the last 10 days, have yo u been in contact with someone who was confirmed or suspected to have Coronavirus/COVID-19? No / Unsure 08/28/2022 10:29 AM BATT MACHINE OPERATOR documented as of this encounter Miscellaneous Notes * Telephone Encounter - Nisa Palmer APRN CNP - 09/01/2022 11:24 AM BATT MACHINE OPERATOR Please let Amie know that her Urine culture showed that no growth, so no UTI. Please ask if her UTI symptoms have resolved. She can stop the medication, nothing else is needed. Thanks, Nisa Palmer CNP MACHINE OPERATOR * Telephone Encounter - Yaritza Anthony RN - 09/01/2022 9:47 AM CST Spoke with patient and has been faithful taking her Rx Macrobid, is having upset stomach/cramping/diarrhea and takes a daily probiotic but sx still persist. Becomes worn out d/t SE Rx. Wondering if she should continue taking the Rx (2 days left) or if PCP would like to change to something else. Please advise. MACHINE OPERATOR documented in this encounter Plan of Treatment Upcoming Encounters Date Type Department Care Team (Late st Contact Info) Description 08/07/2024 4:30 PM BATT MACHINE OPERATOR Office Visit [facility] [address] [place] [address] [place] [address] [place] [address] documented as of this encounter Visit Diagnoses Not on filedocumented in this encounter Care Teams Marine Photographer Relationship Specialty [place] [address] [place] [address] PCP - General Family Medicine 01/18/21 [place] [address] [place] [address] Assigned PCP 01/23/21 Fermín Casey PA-C [address] [place] [address] Physician County Coroner Gastroenterology 09/21/22 Iam Elkins PA-C [address] [place] [address] Physician County Coroner Gastroenterology 11/10/22 Iam Elkins PA-C [address] [place] [address] Physician County Coroner Gastroenterology 02/27/23 Iam Elkins PA-C [address] [place] [address] Assigned Gastroenterology Provider 08/16/23 04/13/24 documented as of this encounter
--- OUTSIDE RECORDS SUMMARY | 2024-04-30 02:28 | XMS_ITS | Encounter Summary ---
Author Organization [facility] Address [address] [place] [address] Care Team Providers Care Box Strapper Name Role Phone Briana Faulkner MD Primary Care Provider Unav Briana Jamison MD Primary Care Provider Unav Crystal Khalil MD Primary Care Provider [phone] Briana Faulkner MD Unavailable UnavailYana Linares PA-C Unavailable + [phone] Yana Mckeon PA-C Unavailable + [phone] Briana Faulkner MD Unavailable UnavailValery Bradshaw MD Unavailable [phone] Valery Jacques MD Primary Care Provider [phone] Naomi Ramirez MD Primary Care Provider [phone] Naomi Ramirez MD Unavailable [phone] Fermín Casey PA-C Unavailable [phone] Iam Elkins PA-C Unavailable Iam Elkins PA-C Unavailable Juliana Elkinsthjae PA-C Unavailable Encounter Details Date Type Department Care Team (Late st Contact Info) Description 03/25/2009 MyC Medical Advice [address], [address] [place] [address] [place] [address] [place] [address] Social History Tobacco Use Types Packs/Day Years Used Date Smoking Tobacco: Never Alcohol Use Standard Drinks/Week Comments Yes 1.7 (1 standard drink = 0.6 oz p [...] st Contact Info) Description 08/07/2024 4:30 PM SUBWAY REPAIR SUPERVISOR Office Visit [address] [address] [place] [address] [place] [address] documented as of this encounter Visit Diagnoses Not on filedocumented in this encounter Care Teams Box Strapper Relationship Specialty Start Date End Date Briana Faulkner MD PCP - General 08/16/09 12/28/19 Briana Faulkner MD PCP - General 07/23/09 08/15/09 [place] [address] [place] [address] PCP - General 09/06/01 07/22/09 Valery Jacques MD [address] , [facility] [address] [place] [address] PCP - General Family Practice 12/29/19 01/17/21 Naomi Ramirez MD [address] [place] [address] PCP - General Family Medicine 01/18/21 Briana Faulkner MD NO INFO AVAILABLE 02/15/23 Assigned PCP 07/13/19 07/19/19 Yana Mckeon PA-C [address], [address] [place] [address] Assigned PCP 07/20/19 09/06/19 Yana Mckeon PA-C [address], [address] [place] [address] Assigned PCP 06/29/19 07/12/19 Briana Faulkner MD NO INFO AVAILABLE 02/15/23 Assigned PCP 06/03/17 06/28/19 Valery Jacques MD [address], [address] [place] [address] Assigned PCP 09/07/19 01/22/21 [place] [address] [place] [address] Assigned PCP 01/23/21 Fermín Casey PA-C [address] [facility] [place] [address] Physician Automated Access Systems Technician Gastroenterology 09/21/22 Iam Elkins PA-C [address] [facility] [place] [address] Physician Automated Access Systems Technician Gastroenterology 11/10/22 Iam Elkins PA-C [address] [place] [address] Physician Automated Access Systems Technician Gastroenterology 02/27/23 Iam Elkins PA-C [address] [place] [address] Assigned Gastroenterology Provider 08/16/23 04/13/24 documented as of this encounter
--- OUTSIDE RECORDS SUMMARY | 2024-04-30 02:28 | XMS_ITS | Encounter Summary ---
Author Organization [facility] Address [address] [place] [address] Care Team Providers Care Rehab Consultant Name Role Phone Naomi Ramirez MD Primary Care Provider [phone] Naomi Ramirez MD Unavailable [phone] Fermín Casey PA-C Unavailable [phone] Iam Elkins PA-C Unavailable Severo Pritha PA-C Unavailable Severo Pritha PA-C Unavailable Encounter Details Date Type Department Care Team (Late st Contact Info) Description 04/03/2023 [facility] Medical Advice [address] [address] Khalida Mccracken RN Social History Tobacco Use Types Packs/Day Years [...] PHQ-2 Answer Date Recorded PHQ-2 Score 0 09/21/2022 Hunger Vital Sign Answer Date Recorded Within [...] st Contact Info) Description 08/07/2024 4:30 PM GROUP SOCIAL WORKER Office Visit [facility] [address] [place] [address] [place] [address] [place] [address] documented as of this encounter Visit Diagnoses Not on filedocumented in this encounter Care Teams Rehab Consultant Relationship Specialty [place] [address] [place] [address] PCP - General Family Medicine 01/18/21 [place] [address] [place] [address] Assigned PCP 01/23/21 Fermín Casey PA-C [address] [place] [address] Physician Success Coach Gastroenterology 09/21/22 Iam Elkins PA-C [address] [place] [address] Physician Success Coach Gastroenterology 11/10/22 Iam Elkins PA-C [address] [place] [address] Physician Success Coach Gastroenterology 02/27/23 Iam Elkins PA-C [address] [place] [address] Assigned Gastroenterology Provider 08/16/23 04/13/24 documented as of this encounter
--- OUTSIDE RECORDS SUMMARY | 2024-04-30 02:28 | XMS_ITS | Encounter Summary ---
Author Organization [facility] Address [address] [place] [address] Care Team Providers Care Green Coffee Blender Name Role Phone Naomi Ramirez MD Primary Care Provider [phone] Naomi Ramirez MD Unavailable [phone] Fermín Casey PA-C Unavailable [phone] Iam Elkins PA-C Unavailable Iam Elkins PA-C Unavailable Iam Elkins PA-C Unavailable Encounter Details Date Type Department Care Team (Latest Contact Info) Description 04/11/2024 Travel Social History Tobacco Use Types Packs/Day [...] often do you attend chur ch or christianity services? More than 4 times per year 08/03/2023 Do you belong to any clubs o r organizations such as mandaen groups, unions, fraternal or athletic groups, or [...] Answer Date Recorded PHQ-2 Score 0 08/06/2023 [facility] - Occupational Stress [...] in an abandoned building, in an overnight senior care, or couch-surfing.) Yes 08/05/2023 Are you worried [...] st Contact Info) Description 08/07/2024 4:30 PM DENTAL TECHNOLOGIST Office Visit [facility] [address] [place] [address] [place] [address] [place] [address] documented as of this encounter Visit Diagnoses Not on filedocumented in this encounter Care Teams Green Coffee Blender Relationship Specialty [place] [address] [place] [address] PCP - General Family Medicine 01/18/21 [place] [address] [place] [address] Assigned PCP 01/23/21 Fermín Casey PA-C [address] [place] [address] Physician Management Professional Gastroenterology 09/21/22 Iam Elkins PA-C [address] [place] [address] Physician Management Professional Gastroenterology 11/10/22 Iam Elkins PA-C [address] [place] [address] Physician Management Professional Gastroenterology 02/27/23 Iam Elkins PA-C [address] [place] [address] Assigned Gastroenterology Provider 08/16/23 04/13/24 documented as of this encounter
--- OUTSIDE RECORDS SUMMARY | 2024-04-30 02:28 | XMS_ITS | Encounter Summary ---
Author Organization [facility] Address [address] [place] [address] Care Team Providers Care Cutting Machine Tender Helper Name Role Phone Naomi Ramirez MD Primary Care Provider Naomi Ramirez MD Unavailable [phone] Fermín Casey PA-C Unavailable [phone] Iam Elkins PA-C Unavailable Severo Pritha PA-C Unavailable Severo Pritha PA-C Unavailable Encounter Details Date Type Department Care Team (Late st Contact Info) Description 06/07/2021 [facility] Medical Advice [address] [address] Aniyah Monahan Social History Tobacco Use Types Packs/Day Years Used Date Smoking Tobacco: Never Smokeless Tobacco: Never Alcohol Use Standard Drinks/Week Comments Not Currently 2.5 (1 standard drink = 0.6 oz p ure alcohol) Overall Financial Resource Strain (CARDIA) Ambrosio r Date Recorded How hard is it for you to pa y for the very basics like food, housing, medical care, and heating? Not hard at all 01/01/2020 PHQ-2 Answer Date Recorded PHQ-2 Score 0 01/18/2021 Hunger Vital Sign Answer Date Recorded Within [...] st Contact Info) Description 08/07/2024 4:30 PM CONTROLS DESIGN ENGINEER Office Visit [facility] [address] [place] [address] [place] [address] [place] [address] documented as of this encounter Visit Diagnoses Not on filedocumented in this encounter Care Teams Cutting Machine Tender Helper Relationship Specialty [place] [address] [place] [address] PCP - General Family Medicine 01/18/21 [place] [address] [place] [address] Assigned PCP 01/23/21 Fermín Casey PA-C [address] [place] [address] Physician Religion Instructor Gastroenterology 09/21/22 Iam Elkins PA-C [address] [place] [address] Physician Religion Instructor Gastroenterology 11/10/22 Iam Elkins PA-C [address] [place] [address] Physician Religion Instructor Gastroenterology 02/27/23 Iam Elkins PA-C [address] [place] [address] Assigned Gastroenterology Provider 08/16/23 04/13/24 documented as of this encounter
--- OUTSIDE RECORDS SUMMARY | 2024-04-30 02:28 | XMS_ITS | Encounter Summary ---
Author Organization [facility] Address [address] [place] [address] Care Team Providers Care Admissions Advisor Name Role Phone Briana Faulkner MD Primary Care Provider Unav Briana Jamison MD Primary Care Provider Unav Crystal Khalil MD Primary Care Provider Briana Faulkner MD Unavailable UnavailYana Linares PA-C Unavailable + [phone] Yana Mckeon PA-C Unavailable + [phone] Briana Faulkner MD Unavailable UnavailValery Bradshaw MD Unavailable [phone] Valery Jacques MD Primary Care Provider Naomi Ramirez MD Primary Care Provider [phone] Naomi Ramirez MD Unavailable [phone] Fermín Casey PA-C Unavailable [phone] Iam Elkins PA-C Unavailable Iam Elkins PA-C Unavailable Iam Elkins PA-C Unavailable Encounter Details Date Type Department Care Team (Late st Contact Info) Description 09/21/2008 MyC Medical Advice [facility] Physicians [address] [place] [address] [facility] Social History Tobacco Use Types Packs/Day Years Used Date Smoking Tobacco: Never Alcohol Use Standard Drinks/Week Comments Yes 1.7 (1 standard drink = 0.6 oz p ure alcohol) wine Sex and Gender Information Value Date Recorded Sex Assigned at Female 11/22/2021 5:35 PM CDT Gender Identity Female 11/22/2021 5:35 PM CDT Sexual Orientation Straight 11/22/2021 5: 35 PM CDT documented as of this encounter Plan of Treatment Upcoming Encounters Date Type Department Care Team (Late st Contact Info) Description 08/07/2024 4:30 PM PSYCHOLOGIST RESEARCH ASSISTANT Office Visit [facility] [address] [place] [address] [place] [address] [place] [address] documented as of this encounter Visit Diagnoses Not on filedocumented in this encounter Care Teams Admissions Advisor Relationship Specialty Start Date End Date Briana Faulkner MD PCP - General 08/16/09 12/28/19 Briana Faulkner MD PCP - General 07/23/09 08/15/09 [place] [address] [place] [address] PCP - General 09/06/01 07/22/09 Valery Jacques MD [address] , [facility] [address] [place] [address] PCP - General Family Practice 12/29/19 01/17/21 [place] [address] [place] [address] PCP - General Family Medicine 01/18/21 Briana Faulkner MD NO INFO AVAILABLE 02/15/23 Assigned PCP 07/13/19 07/19/19 Yana Mckeon PA-C [address], [address] [address] Assigned PCP 07/20/19 09/06/19 Yana Mckeon PA-C [address], [address] [address] Assigned PCP 06/29/19 07/12/19 Briana Faulkner MD NO INFO AVAILABLE 02/15/23 Assigned PCP 06/03/17 06/28/19 Valery Jacques MD [address] , [address] [address] Assigned PCP 09/07/19 01/22/21 [place] [address] [place] [address] Assigned PCP 01/23/21 Fermín Casey PA-C [address] [place] [address] Physician Alumni Coordinator Gastroenterology 09/21/22 Iam Elkins PA-C [address] [place] [address] Physician Alumni Coordinator Gastroenterology 11/10/22 Iam Elkins PA-C [address] [place] [address] Physician Alumni Coordinator Gastroenterology 02/27/23 Iam Elkins PA-C [address] [place] [address] Assigned Gastroenterology Provider 08/16/23 04/13/24 documented as of this encounter
--- OUTSIDE RECORDS SUMMARY | 2024-04-30 02:28 | XMS_ITS | Continuity of Care Document ---
Author Organization [facility] Address [address] [place] [address] Phone Care Team Providers Care Sound Engineer Audio Control Name Role Phone Miki ARCHIBALD MD, Tushar Unavailable Unavailable Advance Directives Directive Yes / No Effective Date File Name No Information Encounters Encounter Description Practice Location Reason(s) For Visit Diagnoses Date Provider Providers Copied on Encounter [facility], [address], [place], [place], [id number], [place] tel:[phone] No Information Sep-0 9201 0 [facility]. [address], [place], [address], [place]. tel:[phone] Referring Provider: Tushar Doran, [address] [place], [place], [facility]. tel:[phone] Family History Family Member Type Diagnosis Age At Onset No Information Payers Payer name Insurance type Covered republican ID Authoriza tion(s) [employer] Select-Commercial CI [id number] Social History Type Description Quantity Date Captured Comments Sex Female Smoking Status No Information Chief Complaint And Reason For Visit No Information Reason For Referral Reason For Referral No Information History Of Present Illness Encounter Date Complaint History Of Prese nt Illness No Information Functional Status Date Functional Assessmen t No Information Instructions Date Instruction Additional Infor mation No Information Assessments Type Assessment Date No Information Patient Care Teams Name Effective Dates (start - stop) Status Members No Information
--- OUTSIDE RECORDS SUMMARY | 2024-04-30 02:28 | XMS_ITS | Encounter Summary ---
Author Organization [place] Address [address] [place] [address] Care Team Providers Care Job Analysis Manager Name Role Phone Naomi Ramirze MD Primary Care Provider Naomi Ramirez MD Unavailable [phone] Fermín Casey PA-C Unavailable [phone] Iam Elkins PA-C Unavailable Severo Pritha PA-C Unavailable Severo Pritha PA-C Unavailable Encounter Details Date Type Department Care Team (Late st Contact Info) Description 06/01/2021 [facility] Medical Advice [address] [address] Aniyah Monahan Social History Tobacco [...] st Contact Info) Description 08/07/2024 4:30 PM STUDENT OUTREACH COORDINATOR Office Visit [facility] [address] [place] [address] [place] [address] [place] [address] documented as of this encounter Visit Diagnoses Not on filedocumented in this encounter Care Teams Job Analysis Manager Relationship Specialty [place] [address] [place] [address] PCP - General Family Medicine 01/18/21 [place] [address] [place] [address] Assigned PCP 01/23/21 Fermín Casey PA-C [address] [place] [address] Physician Casing In Line Setter Gastroenterology 09/21/22 Iam Elkins PA-C [address] [place] [address] Physician Casing In Line Setter Gastroenterology 11/10/22 Iam Elkins PA-C [address] [place] [address] Physician Casing In Line Setter Gastroenterology 02/27/23 Iam Elkins PA-C [address] [place] [address] Assigned Gastroenterology Provider 08/16/23 04/13/24 documented as of this encounter
--- OUTSIDE RECORDS SUMMARY | 2024-04-30 02:28 | XMS_ITS | Encounter Summary ---
Author Organization [place] Address [address] [place] [address] Care Team Providers Care Power Plant Technician Name Role Phone Briana Faulkner MD Primary Care Provider Unav ailable Briana Faulkner MD Unavailable UnavailYana Linares PA-C Unavailable + [phone] Yana Mckeon PA-C Unavailable + [phone] Briana Faulkner MD Unavailable Unavailabl Valery Baumann MD Unavailable [phone] Valery Jacques MD Primary Care Provider [phone] Naomi Ramirez MD Primary Care Provider [phone] Naomi Ramirez MD Unavailable [phone] Fermín Casey PA-C Unavailable [phone] Iam Elkins PA-C Unavailable Juliana Elkinsthjae PA-C Unavailable Juliana Elkinsthjae PA-C Unavailable Encounter Details Date Type Department Care Team (Late st Contact Info) Description 02/11/2015 [facility] Medical Advice [facility] [address] [place] [address] [address] [place] [phone] Briana Faulkner MD NO INFO AVAILABLE 02/15/23 [...] st Contact Info) Description 08/07/2024 4:30 PM CELLOPHANER Office Visit [facility] [address] [place] [address] [place] [address] [place] [address] documented as of this encounter Visit Diagnoses Not on filedocumented in this encounter Care Teams Power Plant Technician Relationship Specialty Start Date End Date Briana Faulkner MD PCP - General 08/16/09 12/28/19 Valery Jacques MD [address] , [address] [address] PCP - General Family Practice 12/29/19 01/17/21 [place] [address] [place] [address] PCP - General Family Medicine 01/18/21 Briana Faulkner MD NO INFO AVAILABLE 02/15/23 Assigned PCP 07/13/19 07/19/19 Yana Mckeon PA-C [address] , [address] [address] Assigned PCP 07/20/19 09/06/19 Yana Mckeon PA-C [address], [address] [place] [address] Assigned PCP 06/29/19 07/12/19 Briana Faulkner MD NO INFO AVAILABLE 02/15/23 Assigned PCP 06/03/17 06/28/19 Valery Jacques MD [address], [address] [place] [address] Assigned PCP 09/07/19 01/22/21 [place] [address] [place] [address] Assigned PCP 01/23/21 Fermín Casey PA-C [address] [facility] [place] [address] Physician Wireless Engineer Gastroenterology 09/21/22 Iam Elkins PA-C [address] [place] [address] Physician Wireless Engineer Gastroenterology 11/10/22 Iam Elkins PA-C [address] [place] [address] Physician Wireless Engineer Gastroenterology 02/27/23 Iam Elkins PA-C [address] [facility] [place] [address] Assigned Gastroenterology Provider 08/16/23 04/13/24 documented as of this encounter
--- OUTSIDE RECORDS SUMMARY | 2024-04-30 02:28 | XMS_ITS | Encounter Summary ---
Author Organization [place] Address [address] [place] [address] Care Team Providers Care Product/Device Technologist Name Role Phone Briana Faulkner MD Primary Care Provider Unav Briana Jamison MD Primary Care Provider Unav Crystal Khalil MD Primary Care Provider [phone] Briana Faulkner MD Unavailable UnavailYana Linares PA-C Unavailable + [phone] Yana Mckeon-C Unavailable + [phone] Briana Faulkner MD Unavailable Unavailabl Valery Baumann MD Unavailable [phone] Valery Jacques MD Primary Care Provider Naoim Ramirez MD Primary Care Provider Naomi Ramirez MD Unavailable [phone] Fermín Casey PA-C Unavailable [phone] Iam Elkins PA-C Unavailable Iam Elkins PA-C Unavailable Iam Elkins PA-C Unavailable Encounter Details Date Type Department Care Team (Late st Contact Info) Description 05/26/[address] [place] [address] Alonzo Lockett [place] [phone] DISCHARGE ORDERS Social History Tobacco Use Types Packs/Day Years Used Date Smoking Tobacco: Never Smokeless Tobacco: Never Alcohol Use Standard Drinks/Week Comments Not Currently 2.5 (1 standard drink = 0.6 oz p ure alcohol) Sex and Gender Information Value Date Recorded Sex Assigned at Female 11/22/2021 5:35 PM CDT Gender Identity Female 11/22/2021 5:35 PM CDT Sexual Orientation Straight 11/22/2021 5: 35 PM CDT documented as of this encounter Progress Notes * 05/26/2003 11:59 PM [id number] 00:00 History And Physical-CAROLINE WEBER) [Entered: 00:00 Tr anscription ([facility])] : 65 CHIEF COMPLAINT: Nausea, vomiting, and abdominal pain. HISTORY OF PRESENT ILLNESS: This is a 38-year-old female who describes herself as typically healthy. On the m orning of admission, roughly 6 a.m., she awoke feeling nauseated. She went on to have watery diarrhe a times ten within a six hour period. She denies black stools or blood. She then began vomiting and had at last eight emeses during the day, finally having dry heaves. She did not eat or drink anythi ng all day. She does feel lightheaded, slightly dizzy. She has mid epigastric pain which she descri bes as severe. It comes in waves and radiates up to her chest and to the back. She denies hematemes is or black coffee ground emesis. She has two children and is . No one else at home has been ill. They have all eaten the same food. She has had no fever. No ill contacts. She has not trave led. She does have a history of acid reflux, but this has been under good control with taking daily Prevacid. The patient was seen in the Emergency Department and had morphine given for the abdominal pain. A CT scan was able to be completed. The patient did drink the contrast and received IV contra ct, and this was reported to be negative for perforation, ulcer, appendicitis, or other pathology. S he received Phenergan for nausea which helped symptoms. PAST MEDICAL HISTORY: GERD, migraine headac hes, menorrhagia. PAST SURGICAL HISTORY: Cholecystectomy, 2000, C sections times two, D&C for heavy bleeding. SOCIAL HISTORY: She is . She stays at home with her two school age children. She is not a smoker. She does not drink alcohol. She drinks one caffeinated beverage a day. FAMILY HISTO RY: Her father has diverticulitis, but otherwise family history is noncontributory. CURRENT MEDICINE S: Inderal 80 mg 1 p.o. q. d., calcium supplements with D 1 p.o. q. d., Amerge p.r.n. for migraine h eadaches, Prevacid 30 mg 1 p.o. q. d. SHE HAS DRUG SENSITIVITY TO AMOXICILLIN WHICH CAUSES VOMITING. SHE HAS NO DRUG ALLERGIES. REVIEW OF SYSTEMS: GENERAL: No fever. She has had chills, has felt fat igued. HEAD, EYES, EARS, NOSE, THROAT: She denies visual changes, ear or throat pain. HEART: Has mid epigastric pain that radiates up into her chest with nausea. No pleuritic pain. RESPIRATORY: No cough, shortness of breath. GI: Nausea with vomiting times eight today, diarrhea stools times ten today which have since resolved. GERD symptoms as above. : History of menorrhagia. No dysuria o r urinary frequency. ENDOCRINE: No history of diabetes or thyroid disease. MUSCULOSKELETAL: Negati ve. NEUROLOGIC: History of migraine headaches which are under excellent control using prophylactic Inderal. LAMP MECHANIC: Last menstrual cycle 05/19/03. OBJECTIVE: Temperature is 97.3, pulse 93, respiratio ns 28, blood pressure 119/68. Oxygen saturation 100% on room air. This is a pleasant overweight wom an who appears mildly uncomfortable. HEAD, EYES, EARS, NOSE, THROAT: PERRL, EOMI. OP is moist. NE CK is supple without lymphadenopathy or thyromegaly. HEART regular S1-S2 with a soft II/ systolic murmur. LUNGS are clear to auscultation bilaterally. The ABDOMEN is soft. There are good bowel sloan nds. There is diffuse tenderness over the abdomen but the mid epigastrium and upper quadrants are mo re tenderness than the rest. She has moderate to severe discomfort with simple light palpation of th e abdomen. I cannot appreciate organomegaly or mass. EXTREMITIES are without peripheral edema. SKI N is free of jaundice. NEUROLOGIC EXAM is normal. LABORATORY DATA: CT scan of the abdomen and pelvi s with contrast was negative for perforation or stomach. No appendicitis or diverticulitis noted. W BC 13.2 with a left shift. Hemoglobin is 14.9, platelets 399,000. Sodium 139, potassium 3.7, chlori de 106, CO2 23. BUN 13, creatinine 0.8. Glucose 102. Calcium is 8.8. Bilirubin 0.7. ALT 23, AST 23 , lipase 81. Urine test negative. Urinalysis positive for ketones, specific gravity 1.020 , otherwise negative. ASSESSMENT: A 38-year-old female with severe gastroenteritis, dehydration, ab dominal pain. PLAN: NPO status. IV hydration with 1/2 normal saline. Patient received 2 liters no rmal saline in the Emergency Department. Use morphine for pain management. Use Phenergan for nausea . Will perform serial abdominal exams to look for worsening status. If worsening, consider repeat C T scan or upper endoscopy or surgical consult. There is no blood in the stool or in the emesis at th is time to suggest Chanel-Torres tear, but will watch for any acute changes. Hemoglobin is stable. P roton pump inhibitor will be given this admission. Will attempt to resume oral medications in the mo rning as tolerated. Patient has history of migraine headaches. Will restart Inderal as tolerated. Dr. Lockett or his colleague will assume patient care in AM 05/27/03. [id number] CAROLINE LOPEZ MD MT: Document: [id number] [place], [place] Name: AMIE WISE HISTORY AND PHYSCIAL Page 3 of 2 LCN: MS3 DSC: 2002 [place], [place] Name: MR#: : Admit Date: AMIE WISE [id number] 1965 05/26/2003 Doctor: CAROLINE LOPEZ MD HISTORY AND PHYSICAL Page 1 of 2 N 00:00 Emergency Department Encounter-KIEL BRYANT () [Entered: 00:00 Hydrometallurgical Engineer ([facility])] : 65 CHIEF COMPLAINT: Nausea, vomiting, diarrhea. HISTORY OF PRESENT ILLNESS: The patient is a 38-year-old female who presents to the Emergency Department after having onset of diarrhea approximately 0600 this morning. She states that shortly thereafter she beg an having nausea and vomiting and epigastric pain which was sharp and intermittent in nature. She de nies any bloody stools, fever or chills, chest pain, shortness of breath. She denies any sick contac ts or under-cooked ingestion. She denies any bladder complaints and states she has been unable to davis p anything down. PAST MEDICAL HISTORY: Positive for gastroesophageal reflux and migraines. She als o has had a cholecystectomy in the past. She is on Prevacid and Inderal. She has no known drug erica rgies. SOCIAL HISTORY: Denies alcohol or tobacco use. FAMILY HISTORY: Noncontributory. REVIEW OF SYSTEMS: As noted in the HPI. All other systems are negative. PHYSICAL EXAM: The patient is aler t, in moderate distress. Temperature 97.3, pulse 102, respiratory rate 28, blood pressure 119/66, Oxy gen saturation 100% on room air. HEENT EXAM: Oropharynx is clear. Mucous membranes moist. Sclera is clear. Conjunctiva is normal. NECK is supple, no lymphadenopathy. No bruits or masses. LUNGS ar e clear to auscultation bilaterally. CARDIAC EXAM: Regular rate and rhythm. No murmurs, gallops or rubs. ABDOMINAL EXAM: Normoactive bowel sounds. Nondistended. The patient has mild diffuse tender ness greatest in the epigastric area, no guarding or rebound, no masses, no CVA tenderness. EXTREMIT IES: No cyanosis, clubbing or edema. Good distal pulses. SKIN warm and dry, no rash. LABORATORY A ND DIAGNOSTICS: I ordered a urinalysis which was positive for ketones otherwise negative. Urine HCG was negative. CBC - white count was 13.2 with 88% neutrophils, 7% lymphocytes. H&H and platelets wer e normal. BNP was within normal limits. Hepatic panel was normal and lipase was normal. I ordered a CT of the abdomen which showed no free air or inflammatory changes. The appendix was normal. There were a few small mesenteric nodes within normal limits otherwise negative. EMERGENCY DEPARTMENT COU RSE: An IV was started. Patient was given a 1 liter bolus of normal saline, 4 mg of Zofran IV 50 mg of Zantac IV, 30 mg of Toradol IV. She was given Morphine 4 mg IV. The ondansetron was repeated twi ce at 4 mg each IV. The Morphine was also repeated twice 4 mg each time for a total of 12 mg. She h ad an acute worsening of her epigastric pain. I repeated my exam, she was tender mostly in the epiga stric area with some voluntary guarding, no rebound. That was when I ordered the CT scan of the abdo men. She continued vomiting and I decided to give her 0.625 mg of droperidol IV. I had an EKG done p er protocol. It showed a slightly prolonged QT interval with a normal sinus rhythm at a rate of 88. There were nonspecific T-Wave changes, no ST changes. Because of the slightly prolonged QT I did no t give her the droperidol. I gave her 12.5 mg of Phenergan IV. This was repeated one time. Because the patient was requiring large doses of narcotics and antiemetics I felt she was unable to go home. I discussed the case with Dr. Lopez who agreed to admit the patient to the third floor for IV flui d, antiemetics and pain medications as well as observation overnight. DIAGNOSIS: 1. Acute gastroent eritis. 2. Abdominal pain. 3. Vomiting and dehydration. [id number] _ KIEL COLLIER MD D: 2002 14:24 [place]: Document: [id number] [place] Name: AMIE WISE EMERGENCY ROOM ENCOUNTER Page 2 of 2 LCN: MS3 DSC: 05/28/2003 [place], [place] Name: MR#: : Admit Date: AMIE WISE [id number] 1965 05/26/2003 Doctor: KIEL COLLIER MD EMERGENCY ROOM ENCOUNTER Page 1 of 2 E lectronically filed by Sofya Mac 06/01/2003 10:44 AM documented in this encounter Plan of Treatment Upcoming Encounters Date Type Department Care Team (Late st Contact Info) Description 08/07/2024 4:30 PM RESEARCH ANALYST Office Visit [facility] [address] [place] [address] [place] [address] [place] [address] documented as of this encounter Visit Diagnoses Diagnosis H&P, ER- Primary documented in this encounter Care Teams Product/Device Technologist Relationship Specialty Start Date End Date Briana Faulkner MD PCP - General 08/16/09 12/28/19 Briana Faulkner MD PCP - General 07/23/09 08/15/09 [place] [address] [place] [address] PCP - General 09/06/01 07/22/09 Valery Jacques MD [address] [address] PCP - General Family Practice 12/29/19 01/17/21 [place] [address] [place] [address] PCP - General Family Medicine 01/18/21 Briana Faulkner MD NO INFO AVAILABLE 02/15/23 Assigned PCP 07/13/19 07/19/19 Yana Mckeon PA-C [address] [address] Assigned PCP 07/20/19 09/06/19 Yana Mckeon PA-C [address] [address] Assigned PCP 06/29/19 07/12/19 Briana Faulkner MD NO INFO AVAILABLE 02/15/23 Assigned PCP 06/03/17 06/28/19 Valery Jacques MD [address], [address] [address] Assigned PCP 09/07/19 01/22/21 [place] [address] [place] [address] Assigned PCP 01/23/21 Fermín Casey PA-C [address] [place] [address] Physician Precision Assembler Bench Gastroenterology 09/21/22 Iam Elkins PA-C [address] [place] [address] Physician Precision Assembler Bench Gastroenterology 11/10/22 Iam Elkins PA-C [address] [place] [address] Physician Precision Assembler Bench Gastroenterology 02/27/23 Iam Elkins PA-C [address] [place] [address] Assigned Gastroenterology Provider 08/16/23 04/13/24 documented as of this encounter
--- OUTSIDE RECORDS SUMMARY | 2024-04-30 02:28 | XMS_ITS | Encounter Summary ---
Author Organization [facility] Address [address] [place] [address]. [place] [address] Care Team Providers Care Health Analytics Consultant Name Role Phone Naomi Ramirez MD Primary Care Provider [phone] Naomi Ramirez MD Unavailable [phone] Fermín Casey PA-C Unavailable [phone] Iam Elkins PA-C Unavailable Juliana Elkinstha PA-C Unavailable Severo Pritha PA-C Unavailable Encounter Details Date Type Department Care Team (Late st Contact Info) Description 10/19/[address] [facility] [address] [place] [address] Maria Antonia Gonzalez Social History Tobacco Use [...] suspected to have Coronavirus/COVID-19? No / Unsure 10/11/2022 2:22 PM CDT documented as of this encounter Plan of Treatment Upcoming Encounters Date Type Department Care Team (Late st Contact Info) Description 08/07/2024 4:30 PM PRODUCTION CORRUGATOR Office Visit [facility] [address] [place] [address] [place] [address] [place] [address] documented as of this encounter Visit Diagnoses Not on filedocumented in this encounter Care Teams Health Analytics Consultant Relationship Specialty [place] [address] [place] [address] PCP - General Family Medicine 01/18/21 [place] [address] [place] [address] Assigned PCP 01/23/21 Fermín Casey PA-C [address] [place] [address] Physician Animal Control Supervisor Gastroenterology 09/21/22 Iam Elkins PA-C [address] [place] [address] Physician Animal Control Supervisor Gastroenterology 11/10/22 Iam Elkins PA-C [address] [place] [address] Physician Animal Control Supervisor Gastroenterology 02/27/23 Iam Elkins PA-C [address] [place] [address] Assigned Gastroenterology Provider 08/16/23 04/13/24 documented as of this encounter
--- OUTSIDE RECORDS SUMMARY | 2024-04-30 02:28 | XMS_ITS | Encounter Summary ---
Author Organization [facility] Address [address] [place] [address]. [place] [address] Care Team Providers Care Marketing Support Coordinator Name Role Phone Naomi Ramirez MD Primary Care Provider [phone] Naomi Ramirez MD Unavailable [phone] Fermín Casey PA-C Unavailable [phone] Iam Elkins PA-C Unavailable Severo Pritha PA-C Unavailable Severo Pritha PA-C Unavailable Reason for Visit * Reason Onset Date Comments Prior Authorization 01/16/2024 Encounter Details Date Type Department Care Team (Late st Contact Info) Description 01/16/2024 Telephone [facility] [address] [place] [address] [place] [address] [place] [address] Prior Authorization Social History Tobacco Use Types Packs/Day Years [...] How often do you attend chur or alevism services? More than 4 times per year 08/03/2023 Do you belong to any clubs o r organizations such as rastafarian groups, unions, fraternal or athletic groups, or [...] Answer Date Recorded PHQ-2 Score 0 08/06/2023 [facility] - Occupational [...] in an abandoned building, in an overnight usp, or couch-surfing.) Yes 08/05/2023 Are you worried [...] encounter Miscellaneous Notes * Telephone Encounter - Geraldo Lama RN - 01/25/2024 12:52 PM CDT Chain Maker called patient, informed of insurance denial. Patient thanked underwriter for calling. * Telephone Encounter - Naomi Ramirez MD - 01/25/2024 12:09 PM CDT Please let her know. Looks like insurance wont cover since she's not on insulin. * Telephone Encounter - Sukhjinder Don DO - 01/23/2024 6:23 PM CDT Save for PCP to review on return to clinic for consideration of alternative device. * Telephone Encounter - Paige Escamilla - 2024 11:30 AM CDT Images from the original note were not included. PRIOR AUTHORIZATION DENIED [facility] [address] [facility] Company: [employer] - Denial Date: 2024 Denial Reason(s): Appeal Information: Patient Notified: No * Telephone Encounter - Paige Escamilla - 01/21/2024 1:41 PM CDT Images from the original note were not included. Retail Pharmacy Prior Authorization Team PA Initiation Medication: FREESTYLE HAL 3 SENSOR [facility] [place] Company: [employer] - Pharmacy Filling the Rx: [id number] - [place], [place] - [address] Filling Pharmacy Filling Pharmacy Fax: Start Date: 01/21/2024 * Telephone Encounter - Geraldo Lama RN - 01/16/2024 1:05 PM CDT Prior Authorization Retail Medication Request Medication/Dose: Continuous Blood Gluc Sensor (FREESTYLE HAL 3 SENSOR) MIS ; 1 Units every 14 days Diagnosis and ICD code (if different than what is on RX): New/renewal/insurance change PA/secondary ins. PA: Previously Tried and Failed: Rationale: Prediabetes [R73.03] Insurance [facility] [employer] Primary: [facility] [employer] Secondary (if applicable):[facility] [employer] Pharmacy Information (if different than what is on RX) Name: Phone: Fax: documented in this encounter Plan of Treatment Upcoming Encounters Date Type Department Care Team (Late st Contact Info) Description 08/07/2024 4:30 PM COPY HOLDER Office Visit [facility] [address] [place] [address] [place] [address] [place] [address] documented as of this encounter Visit Diagnoses Not on filedocumented in this encounter Care Teams Marketing Support Coordinator Relationship Specialty Start [place] [address] [place] [address] PCP - General Family Medicine 01/18/21 [place] [address] [place] [address] Assigned PCP 01/23/21 Fermín Casey PA-C [address] [place] [address] Physician Application Project Leader Gastroenterology 09/21/22 Iam Elkins PA-C [address] [place] [address] Physician Application Project Leader Gastroenterology 11/10/22 Iam Elkins PA-C [address] [place] [address] Physician Application Project Leader Gastroenterology 02/27/23 Iam Elkins PA-C [address] [place] [address] Assigned Gastroenterology Provider 08/16/23 04/13/24 documented as of this encounter
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
--- OUTSIDE RECORDS SUMMARY | 2024-04-30 02:28 | XMS_ITS | Encounter Summary ---
Author Organization [facility] Address [address] [place] [address] Care Team Providers Care Wireless Development Manager Name Role Phone Briana Faulkner MD Primary Care Provider Unav Briana Jamison MD Primary Care Provider Unav Crystal Khalil MD Primary Care Provider Briana Faulkner MD Unavailable UnavailYana Linares PA-C Unavailable + [phone] Yana Mckeon PA-C Unavailable + [phone] Briana Faulkner MD Unavailable UnavailValery Bradshaw MD Unavailable Valery Jacques MD Primary Care Provider Naomi Ramirez MD Primary Care Provider Naomi Ramirez MD Unavailable [phone] Fermín Casey PA-C Unavailable [phone] Iam Elkins PA-C Unavailable Iam Elkins PA-C Unavailable Iam Elkins PA-C Unavailable Encounter Details Date Type Department Care Team (Late st Contact Info) Description 11/16/[address] [place] [address] Alonzo Lockett MD [place] [phone] ER ENCOUNTER (Primary Dx) Social History Tobacco Use Types Packs/Day Years [...] as of this encounter Progress Notes * 11/16/2002 11:59 PM CDTAddended by: ENZO APONTE on: 12/03/2002,3:02 PM Modules accepted: Progress Notes 00:0 0 Emergency Department Encounter-[facility]) [Entered: 00:00 Transcri ption ([facility])] : 65 CHIEF COMPLAINT: Chest and leg injury. HISTORY OF PRESENT ILLNESS: T he patient is a 37-year-old female slipped in the bath tub striking her chest and right leg on the porcelain tub. She did not strike her head. She did not complain of a headache, shortness o f breath, cough, neck pain, upper extremity weakness, abdominal pain or difficulty in ambulation or w eight bearing. She does note that the pain in the chest restricts her deep breathing and exacerbates the pain with deep inspiration. She also notes significant swelling has occurred over the anterior p art of her right leg but she has not pain with movements of her toes. PAST MEDICAL HISTORY: Remarka ble for migraines. CURRENT MEDICATIONS: Inderal and Prevacid. DOCUMENTED DRUG ALLERGIES: None. I MMUNIZATIONS: Not current. HABITS: Does not use alcohol, tobacco, recreational drugs or abuse over -the-counter medications. 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 REVIEW OF SYSTEMS: Othe rwise as noted above. All other systems are unremarkable. FAMILY HISTORY: Noncontributory. PHYSIC AL EXAMINATION: The patient is a 37-year-old female. Blood pressure 121/84, respiratory rate 16, hea rt rate 79, temperature 99.7, room air pulse oximetry 99%. CHEST symmetric. Chest wall is markedly tender, specifically over the area of the sternum and the right parasternal area. There is no eviden ce of breast contusions or hematomas and the axilla is without mass. The clavicle on the right side is without deformity. The NECK is nontender, supple. Full range of motion. No stridor, drooling, p ooling or dysphonia. HEENT reveals that head is atraumatic, normocephalic. The pupils are equal, ro und, reactive. ABDOMEN is full, soft, bowel sounds are active. No rebound, guarding or masses. PEL VIS is stable and nontender. The right lower EXTREMITY is remarkable for proximal prepatellar area o f significant soft tissue swelling. Negative passive dorsiflexion of the great toe. There is an inta ct dorsalis pedis pulse in the right lower extremity. There is full range of motion of the hip and equal leg length and normal weight bearing without pain. IMAGING STUDIES: 1. PA and lateral of t he chest and sternum views without evidence of fracture, lung contusions or pneumothorax. 2. Right t ib/fib views - no evidence of fracture of dislocation. Soft tissue swelling is noted. CLINICAL IMPR ESSION: 1. Chest wall contusions without sternal fracture or pulmonary contusion. 2. Right tibial contusion without evidence of fracture. 3. No evidence of compartment syndrome, right lower extrem ity. EMERGENCY DEPARTMENT COURSE AND MANAGEMENT: Following admission to the Emergency Room and upon completion of the above documented exam, the patient was provided incentive spirometry teaching by he rself. She was provided the goals and frequency of doing such ventilatory excursions as well as info rmation on how to test for evolving compartment syndrome of the right lower extremity. She demonstra ana how to do passive dorsiflexion of the great toe. Her is present at the bedside and ruben jaimeedges understanding of this technique. The patient was then provided with padded wesley wrap to the l ower extremity immediately over the area of the swelling. This did not compromise flow to the rest o f the lower leg as normal color and dorsalis pedis pulsations were elicited after the application of the padded wesley wrap. The patient is discharged home to put ice to all areas of discomfort every one to two hours for 20 minutes for the next two to three days. Use incentive spirometry as directed. T o use Celebrex 200 mg daily for the next seven days. Vicodin one to two tablets every six to eight h ours, dispensed #20. She should be rechecked by the primary physician in three to four days or if sy mptoms should worsen, report back to the emergency department for reevaluation. Passive dorsiflexion of the great toe should be done every one to two hours. If any painful symptoms are elicited to repo rt immediately to the emergency department for evaluation of possible evolving compartment syndrome o f the right pretibial compartment. [id number] _ LOPEZ ESTRADA MD MT: Document: [id number] [place], [place] Name: JONATHON WISE EMERGENCY ROOM ENCOUNTER Page 3 of 2 LCN: ERB DSC: 11/16/2002 [place], [place] Name: MR#: : Admit Date: AMIE WISE [id number] 1965 003 Doctor: LOPEZ ESTRADA MD EMERGENCY ROOM ENCOUNTER Page 1 of 2 Electronically filed by Oskar Aponte 12/03/2002 3:02 PM documented in this encounter Plan of Treatment Upcoming Encounters Date Type Department Care Team (Late st Contact Info) Description 08/07/2024 4:30 PM MONITORING ANALYST Office Visit [facility] [address] [place] [address] [place] [address] [place] [address] documented as of this encounter Visit Diagnoses Diagnosis ER ENCOUNTER- Primary documented in this encounter Care Teams Wireless Development Manager Relationship Specialty Start Date End Date Briana Faulkner MD PCP - General 08/16/09 12/28/19 Briana Faulkner MD PCP - General 07/23/09 08/15/09 [place] [address] [place] [address] PCP - General 09/06/01 07/22/09 Valery Jacques MD [address], [address] [address] PCP - General Family Practice 12/29/19 01/17/21 [place] [address] [place] [address] PCP - General Family Medicine 01/18/21 Briana Faulkner MD NO INFO AVAILABLE 02/15/23 Assigned PCP 07/13/19 07/19/19 Yana Mckeon PA-C [address], [address] [address] Assigned PCP 07/20/19 09/06/19 Yana Mckeon PA-C [address], [address] [address] Assigned PCP 06/29/19 07/12/19 Briana Faulkner MD NO INFO AVAILABLE 02/15/23 Assigned PCP 06/03/17 06/28/19 Valery Jacques MD [address], [address] [address] Assigned PCP 09/07/19 01/22/21 [place] [address] [place] [address] Assigned PCP 01/23/21 Fermín Casey PA-C [address] [place] [address] Physician Swatch Paster Gastroenterology 09/21/22 Iam Elkins PA-C [address] [place] [address] Physician Swatch Paster Gastroenterology 11/10/22 Iam Elkins PA-C [address] [place] [address] Physician Swatch Paster Gastroenterology 02/27/23 Iam Elkins PA-C [address] [place] [address] Assigned Gastroenterology Provider 08/16/23 04/13/24 documented as of this encounter
--- OUTSIDE RECORDS SUMMARY | 2024-04-30 02:28 | XMS_ITS | Encounter Summary ---
Author Organization [facility] Address [address] [place] [address] Care Team Providers Care Respiratory Tech Name Role Phone Briana Faulkner MD Primary Care Provider Unav ailable Briana Faulkner MD Unavailable UnavailYana Linares PA-C Unavailable + [phone] Yana Mckeon PA-C Unavailable + [phone] Briana Faulkner MD Unavailable Unavailabl Valery Baumann MD Unavailable [phone] Valery Jacques MD Primary Care Provider [phone] Naomi Ramirez MD Primary Care Provider [phone] Naomi Ramirez MD Unavailable [phone] Fermín Casey PA-C Unavailable [phone] Iam Elkins PA-C Unavailable Juliana Elkinstha PA-C Unavailable Juliana Elkinsthjae PA-C Unavailable Reason for Visit * Reason Comments Medication Refill Encounter Details Date Type Department Care Team (Late st Contact Info) Description 11/30/2014 Refill [facility] Physicians [address] [place] [address] [address] [place] [address] Briana Faulkner MD NO INFO AVAILABLE 02/15/23 Medication Refill Social History Tobacco Use Types [...] encounter Miscellaneous Notes * Telephone Encounter - Naomi Travis - 11/30/2014 7:56 AM CDT Can you please review for BJS: Last discussed 03/05, good control with med. Pending Prescriptions: Disp Refills LANsoprazole (PREVACID) 30 MG capsule [Ph*90 cap*1 Sig: TAKE 1 CAPSULE (30 MG) BY MOUTH DAILY documented in this encounter Plan of Treatment Upcoming Encounters Date Type Department Care Team (Late st Contact Info) Description 08/07/2024 4:30 PM BLOCKER AND POLISHER GOLD WHEEL Office Visit [address] [address] [place] [address] [place], [place] [address] documented as of this encounter Visit Diagnoses Diagnosis Gastroesophageal reflux disease without esophagitis- Primary Esophageal reflux documented in this encounter Care Teams Respiratory Tech Relationship Specialty Start Date End Date Briana Faulkner MD PCP - General 08/16/09 12/28/19 Valery Jacques MD [address] [address] PCP - General Family Practice 12/29/19 01/17/21 Naomi Ramirez [place] [address] [place] [address] PCP - General Family Medicine 01/18/21 Briana Faulkner MD NO INFO AVAILABLE 02/15/23 Assigned PCP 07/13/19 07/19/19 Yana Mckeon PA-C [address], [address] [place] [address] Assigned PCP 07/20/19 09/06/19 Yana Mckeon PA-C [address], [address] [place] [address] Assigned PCP 06/29/19 07/12/19 Briana Faulkner MD NO INFO AVAILABLE 02/15/23 Assigned PCP 06/03/17 06/28/19 Valery Jacques MD [address], [address] [place] [address] Assigned PCP 09/07/19 01/22/21 [place] [address] [place] [address] Assigned PCP 01/23/21 Fermín Casey PA-C [address] [facility] [place] [address] Physician Director Of Occupational Health Gastroenterology 09/21/22 Iam Elkins PA-C [address] [place] [address] Physician Director Of Occupational Health Gastroenterology 11/10/22 Iam Elkins PA-C [address] [place] [address] Physician Director Of Occupational Health Gastroenterology 02/27/23 Iam Elkins PA-C [address] [place] [address] Assigned Gastroenterology Provider 08/16/23 04/13/24 documented as of this encounter
--- OUTSIDE RECORDS SUMMARY | 2024-04-30 02:28 | XMS_ITS | Encounter Summary ---
Author Organization [facility] Address [address] [place] [address] Care Team Providers Care Switch Repairer Name Role Phone Naomi Ramirez MD Primary Care Provider [phone] Naomi Ramirez MD Unavailable [phone] Fermín Casey PA-C Unavailable [phone] Iam Elkins PA-C Unavailable Severo Pritha PA-C Unavailable Severo Pritha PA-C Unavailable Encounter Details Date Type Department Care Team (Late st Contact Info) Description 11/02/2022 [facility] [place] [address] [address] Marika Barton Social History Tobacco Use Types Packs/Day Years [...] st Contact Info) Description 08/07/2024 4:30 PM MANAGER CAR Office Visit [address] [address] [place] [address] [place] [address] documented as of this encounter Visit Diagnoses Not on filedocumented in this encounter Care Teams Switch Repairer Relationship Specialty [place] [address] [place] [address] PCP - General Family Medicine 01/18/21 [place] [address] [place] [address] Assigned PCP 01/23/21 Fermín Casey PA-C [address] [place] [address] Physician Elementary Science Teacher Gastroenterology 09/21/22 Iam Elkins PA-C [address] [place] [address] Physician Elementary Science Teacher Gastroenterology 11/10/22 Iam Elkins PA-C [address] [place] [address] Physician Elementary Science Teacher Gastroenterology 02/27/23 Iam Elkins PA-C [address] [place] [address] Assigned Gastroenterology Provider 08/16/23 04/13/24 documented as of this encounter
--- OUTSIDE RECORDS SUMMARY | 2024-04-30 02:28 | XMS_ITS | Encounter Summary ---
Author Organization [facility] Address [address] [place] [address] Care Team Providers Care Mold Tooling Technician Name Role Phone Naomi Ramirez MD Primary Care Provider Naomi Ramirez MD Unavailable [phone] Fermín Casey PA-C Unavailable [phone] Iam Elkins PA-C Unavailable Severo Pritha PA-C Unavailable Severo Pritha PA-C Unavailable Encounter Details Date Type Department Care Team (Late st Contact Info) Description 10/06/2022 [facility] [place] [address] [address] Isabel Ayers RN Social History Tobacco Use Types Packs/Day [...] suspected to have Coronavirus/COVID-19? No / Unsure 10/08/2022 6:16 PM CDT documented as of this encounter Plan of Treatment Upcoming Encounters Date Type Department Care Team (Late st Contact Info) Description 08/07/2024 4:30 PM SOCIAL MEDIA MARKETER Office Visit [facility] [address] [place] [address] [place] [address] [place] [address] documented as of this encounter Visit Diagnoses Not on filedocumented in this encounter Care Teams Mold Tooling Technician Relationship Specialty [place] [address] [place] [address] PCP - General Family Medicine 01/18/21 [place] [address] [place] [address] Assigned PCP 01/23/21 Fermín Casey PA-C [address] [place] [address] Physician Customer Service Manager Gastroenterology 09/21/22 Iam Elkins PA-C [address] [place] [address] Physician Customer Service Manager Gastroenterology 11/10/22 Iam Elkins PA-C [address] [place] [address] Physician Customer Service Manager Gastroenterology 02/27/23 Iam Elkins PA-C [address] [place] [address] Assigned Gastroenterology Provider 08/16/23 04/13/24 documented as of this encounter
--- OUTSIDE RECORDS SUMMARY | 2024-04-30 02:28 | XMS_ITS | Encounter Summary ---
Author Organization [facility] Address [address] [place] [address]. [place] [address] Care Team Providers Care Major Case Detective Name Role Phone Naomi Ramirez MD Primary Care Provider Naomi Ramirez MD Unavailable [phone] Fermín Casey PA-C Unavailable [phone] Iam Elkins PA-C Unavailable Iam Elkins PA-C Unavailable Iam Elkins PA-C Unavailable Encounter Details Date Type Department Care Team (Late st Contact Info) Description 10/19/2022 [facility] [place]ice [address] [address] Iam Elkins PA-C [address] [place] [address] Social History Tobacco Use Types Packs/Day Years [...] st Contact Info) Description 08/07/2024 4:30 PM MIDDLE SCHOOL HISTORY TEACHER Office Visit [address] [address] [place] [address] [place] [address] documented as of this encounter Visit Diagnoses Not on filedocumented in this encounter Care Teams Major Case Detective Relationship Specialty [place] [address] [place] [address] PCP - General Family Medicine 01/18/21 [place] [address] [place] [address] Assigned PCP 01/23/21 Fermín Casey PA-C [address] [place] [address] Physician Bolt Threader Gastroenterology 09/21/22 Iam Elkins PA-C [address] [place] [address] Physician Bolt Threader Gastroenterology 11/10/22 Iam Elkins PA-C [address] [place] [address] Physician Bolt Threader Gastroenterology 02/27/23 Iam Elkins PA-C [address] [place] [address] Assigned Gastroenterology Provider 08/16/23 04/13/24 documented as of this encounter
--- OUTSIDE RECORDS SUMMARY | 2024-04-30 02:28 | XMS_ITS | Encounter Summary ---
Author Organization [facility] [facility] Address [address] [place] [address]. [place] [address] Care Team Providers Care Supervisor Plate Forming Name Role Phone Naomi Ramirez MD Primary Care Provider [phone] Naomi Ramirez MD Unavailable [phone] Fermín Casey PA-C Unavailable [phone] Iam Elkins PA-C Unavailable Severo Pritha PA-C Unavailable Severo Pritha PA-C Unavailable Reason for Visit * Reason Onset Date Comments MyChart Communication 01/16/2024 Encounter Details Date Type Department Care Team (Late st Contact Info) Description 01/16/2024 [facility] [address] [place] [address] [place] [address] [place] [address] MyChart Communication Social History Tobacco Use Types Packs/Day Years [...] often do you attend chur ch or catholic services? More than 4 times per year 08/03/2023 Do you belong to any clubs o r organizations such as jewish groups, unions, fraternal or athletic groups, or [...] Answer Date Recorded PHQ-2 Score 0 08/06/2023 [facility] - Occupational [...] in an abandoned building, in an overnight fdc, or couch-surfing.) Yes 08/05/2023 Are you worried [...] encounter Miscellaneous Notes * Telephone Encounter - Lata Weiss RN - 01/16/2024 11:42 AM CDT Please see brayden and joseph. A1C in July 2023: 6.3 aLta Fernandez RN documented in this encounter Plan of Treatment Upcoming Encounters Date Type Department Care Team (Late st Contact Info) Description 08/07/2024 4:30 PM TRAINING PROFESSIONAL Office Visit [facility] [address] [place] [phone] [place] [address] [place] [address] documented as of this encounter Visit Diagnoses Not on filedocumented in this encounter Care Teams Supervisor Plate Forming Relationship Specialty [place] [address] [place] [address] PCP - General Family Medicine 01/18/21 [place] [address] [place] [address] Assigned PCP 01/23/21 Fermín Casey PA-C [address] [place] [address] Physician Claim Review Medical Director Gastroenterology 09/21/22 Iam Elkins PA-C [address] [place] [address] Physician Claim Review Medical Director Gastroenterology 11/10/22 Iam Elkins PA-C [address] [place] [address] Physician Claim Review Medical Director Gastroenterology 02/27/23 Iam Elkins PA-C [address] [place] [address] Assigned Gastroenterology Provider 08/16/23 04/13/24 documented as of this encounter
--- OUTSIDE RECORDS SUMMARY | 2024-04-30 02:28 | XMS_ITS | Encounter Summary ---
Author Organization [facility] Address [address] [place] [address] Care Team Providers Care Refinery Operator Reforming Unit Name Role Phone Briana Faulkner MD Primary Care Provider Unav ailable Briana Faulkner MD Unavailable UnavailYana Linares PA-C Unavailable + [phone] Yana Mckeon PA-C Unavailable + [phone] Briana Faulkner MD Unavailable Unavailabl Valery Baumann MD Unavailable [phone] Valery Jacques MD Primary Care Provider [phone] Naomi Ramirez MD Primary Care Provider [phone] Naomi Ramirez MD Unavailable [phone] Fermín Casey PA-C Unavailable [phone] Iam Elkins PA-C Unavailable Juliana Elkinsthjae PA-C Unavailable Juliana Elkinsthjae PA-C Unavailable Encounter Details Date Type Department Care Team (Late st Contact Info) Description 09/08/2018 MyC Medical Advice [facility] [address] [place] [address] [address] [place] [id number] Briana Faulkner MD NO INFO AVAILABLE 02/15/23 Social History Tobacco Use Types Packs/Day Years Used Date Smoking Tobacco: Never Smokeless Tobacco: Never Alcohol Use Standard Drinks/Week Comments Yes 2.5 (1 standard drink = 0.6 oz p ure alcohol) wine, few weekly PHQ-2 Answer Date Recorded PHQ-2 Score 0 07/30/2018 Sex and Gender Information Value Date Recorded Sex Assigned at Female 11/22/2021 5:35 PM CDT Gender Identity Female 11/22/2021 5:35 PM CDT Sexual Orientation Straight 11/22/2021 5: 35 PM CDT documented as of this encounter Miscellaneous Notes * Telephone Encounter - Briana Faulkner MD - 09/09/2018 11:48 AM CALL WORKER Lisset- can you contact patient I do like the program at [facility] (now [facility] in [place]- this might be the program she is referring to Can you give her all her options- including on line programs WORKER * Telephone Encounter - Nadya Brantley CMA - 09/09/2018 8:15 AM CSTFrom: Amie Solorio To: Briana Faulkner MD Sent: 09/08/2018 10:57 AM CALL WORKER Subject: Do I need an appointment? Good Morning, I wanted to see if you have a recommendation for a operations planner? I wanted to get some counseling on eating, blood pressure, and my thyroid issues. I have done some research and found a place called [facility] that looks like a possible good fit. I am not s ure looking this up myself if this place or somewhere else would be a better fit for what I am looking for. Any suggestions would be greatly appreciated. Amie WORKER documented in this encounter Plan of Treatment Upcoming Encounters Date Type Department Care Team (Late st Contact Info) Description 08/07/2024 4:30 PM CALL WORKER Office Visit [facility] [id number] [place] [id number] [place] [id number] [place] [address] documented as of this encounter Visit Diagnoses Not on filedocumented in this encounter Care Teams Refinery Operator Reforming Unit Relationship Specialty Start Date End Date Briana Faulkner MD PCP - General 08/16/09 12/28/19 Valery Jacques MD [address], [address] [address] PCP - General Family Practice 12/29/19 01/17/21 [place] [address] [address] [place] [address] PCP - General Family Medicine 01/18/21 Briana Faulkner MD NO INFO AVAILABLE 02/15/23 Assigned PCP 07/13/19 07/19/19 Yana Mckeon PA-C [address], [address] [address] Assigned PCP 07/20/19 09/06/19 Yana Mckeon PA-C [address], [address] [address] Assigned PCP 06/29/19 07/12/19 Briana Faulkner MD NO INFO AVAILABLE 02/15/23 Assigned PCP 06/03/17 06/28/19 Valery Jacques MD [address], [address] [address] Assigned PCP 09/07/19 01/22/21 [place] [address] [address] [address] Assigned PCP 01/23/21 Fermín Casey PA-C [id number] [place] [address] Physician Die Cast Supervisor Gastroenterology 09/21/22 Iam Elkins PA-C [address] [place] [address] Physician Die Cast Supervisor Gastroenterology 11/10/22 Iam Elkins PA-C [address] [place] [address] Physician Die Cast Supervisor Gastroenterology 02/27/23 Iam Elkins PA-C [address] [place] [address] Assigned Gastroenterology Provider 08/16/23 04/13/24 documented as of this encounter
--- OUTSIDE RECORDS SUMMARY | 2024-04-30 02:29 | XMS_ITS | Continuity of Care Document ---
Author Organization [facility] Address [address] [address] [place] [address] Phone Care Team Providers Care Government Property Inspector Name Role Phone Laverne Rodríguez CRNA Unavailable Unavailable Allergies, Adverse Reactions, Alerts Substance Reaction Status Criticality No Known Allergies Active No Inform ation Medications Medication Instructions Dosage Effective Dates (start - stop) Status Comments propranolol 20 mg tablet take 1 tablet by oral route 2 times every day 20 MG - Active omeprazole 40 mg capsule,delayed release take 1 capsule by oral route every day before a meal 40 MG - Active ferrous sulfate 325 mg (65 mg iron) tablet take 1 tablet by oral route every day 1 tablet - Active Aleve 220 mg capsule take 1 tablet by oral route every day as needed as needed 1 tablet - Active Maxalt 10 mg tablet take 1 tablet by oral route once, may repeat at 2 hour intervals; do not exceed 30 mg in 24 hours as needed 10 MG - Active PROBIOTIC (unknown strength) take 1 capsule by oral route every day Not Available - Active Synthroid 100 mcg tablet take 1 tablet by oral route every day 100 MCG - Active amitriptyline 50 mg tablet take 1 tablet by oral route every day at bedtime 50 MG - Active INDERAL LA (unknown strength) take 1 capsule by oral route 2 times every day Not Available No Longer Active magnesium 250 mg tablet take 2 tablet by oral route every day 2 tablet No Longer Active Vitamin D3 125 mcg (5,000 unit) tablet take 2 tablet by oral route every week No Longer Active CINNAMON (unknown strength) take 1 capsule by oral route every day Not Available No Longer Active lansoprazole 30 mg capsule,delayed release take 1 capsule by oral route every day 30 MG No Longer Active Zyrtec 10 mg tablet take 1 tablet by oral route every day 10 MG No Longer Active Procedures Procedure Date Colonoscopy Flex; W/remov Les- Colonoscopy Flex; W/bx 1/mx Ugi Endo; W/bx 1/mx Level Iv-surg Path Gross/micro 23 Colonoscopy Flex; W/remov Les- Level Iv-surg Path Gross/micro 20 Colonoscopy Flex; Dx (sep Pro) 15 Advance Directives Directive Yes / No Effective Date File Name No Information Encounters Encounter Description Practice Location Reason(s) For Visit Diagnoses Date Provider Providers Copied on Encounter [facility], [address] [address], [place], [id number], [place] tel:[phone] [facility] No Information 3 Marcos Galloway. [address] [facility], [place], [id number] , [place]. tel:[phone] Referring Provider: Ara Lacey MD, [address] [facility] [address], [place], [address] . tel:[phone] [facility] [place], [address] [address], [place], [id number], [place] tel:[phone] [facility] GI Symptoms or Concerns (chief complaint) Hiatal herniaBenign fundic gland polyps of stomachFamily history of colonic polypsColorectal polyp detected on colonoscopyColoni c diverticulumHemor rhoids, externalDiarrhea, unspecifiedPerson al history of colonic polypsBenign neoplasm of transverse colonPolyp of stomach and duodenumDiarrhea, unspecifiedPolyp of stomach and duodenumBenign neoplasm of transverse colonPersonal history of colonic polyps 3 Abhijit Bullock. [address] [facility], [facility] [address], [place], [place], [id number] , [place]. tel:[phone] Referring Provider: Referral Self, USE FOR SELF REFERRALS. [facility], [address] [address], [place], [place], [id number], [place] tel:[phone] [facility] No Information 3 Navjot Quinn. [address] [facility], [facility] [address], [place], [place], [id number] , [place]. tel: [phone] [facility], [address] [address], [place], [id number], [place] tel:[phone] [facility] Colorectal polypsDiverticulo sisInternal hemorrhoidsEncoun ter for screening for malignant neoplasm of colonFamily history of colonic polypsBenign neoplasm of cecumBenign neoplasm of descending colonBenign neoplasm of descending colonBenign neoplasm of cecumFamily history of colonic polyps 0 Conrado Flower. [address] [facility], [facility] [address], [place], [place], [id number] , [place]. tel:[phone] Referring Provider: Referral Self, USE FOR SELF REFERRALS. [facility], [address] [address], [place], [place], [id number], [place] tel:[phone] [facility] [address] No Information 9 Rissa Bautista. [address] [facility], [address], [place], [place], [id number] , [place]. tel: [phone] [facility], [address] [address], [place], [place], [id number], [place] tel:[phone] [place] [facility] Colon cancer screeningFamily history of colon polypsDiverticulo sis of colonHemorrhoidsC hange In Bowel HabitsConstipatio n UnspecifiedHemorr hoidsDiverticulos is Of Colon 5 Halima Escamilla. [address] [facility], [facility] [address], [place], [id number] , [place]. tel:[phone] Referring Provider: Briana Doran, [address], [place], [address]. tel:[phone] [facility], [address] [address], [place], [id number], [place] tel:[phone] [facility] External Referral 5 Reed Kamara. [address] [facility], [facility] [address], [place], [id number] , [place]. [phone] Referring Provider: Briana Doran, [address], [place], [address]. tel:[phone] Family History Family Member Type Diagnosis Age At Onset Brother Problem (finding) Alive and well Father Problem (finding) diverticulitis of colon Mother Problem (finding) Alive and well Daughter Problem (finding) Alive and well Father Problem (finding) Colon polyps Immunizations Vaccine Date Status Comments Afluria Qd administered Note: [facility] bi-directional interface ; Source: Other Registry SARS-COV-2 (COVID-19) vaccin e, mRNA, spike protein, LNP, preservative free, 30 mcg/0.3mL dose administered Note: [facility] bi-direct ional interface ; Source: Other Registry Influenza, seasonal, injectable administe red Note: [facility] bi- directional interface ; Source: Other Registry SARS-COV-2 (COVID-19) vaccin e, mRNA, spike protein, LNP, preservative free, 30 mcg/0.3mL dose administered Note: [facility] bi-direct ional interface ; Source: Other Registry SARS-COV-2 (COVID-19) vaccin e, mRNA, spike protein, LNP, preservative free, 30 mcg/0.3mL dose administered Note: [facility] bi-direct ional interface ; Source: Other Registry Afluria Qd administered Note: [facility] bi-directional interface ; Source: Other Registry Afluria Qd administered Note: [facility] bi-directional interface ; Source: Other Registry Fluzone Quad 6mo or older administered Note: [facility] bi-direct ional interface ; Source: Other Registry tetanus and diphtheria toxoi ds, adsorbed, preservative free, for adult use (5 Lf of tetanus toxoid and 2 Lf of diphtheria toxoid) administered Note: [facility] bi-direct ional interface ; Source: Other Registry Afluria Qd administered Note: [facility] bi-directional interface ; Source: Other Registry Fluzone Quad 6mo or older administered Note: [facility] bi-direct ional interface ; Source: Other Registry Afluria Qd administered Note: [facility] bi-directional interface ; Source: Other Registry Fluzone Quad 6mo or older administered Note: [facility] bi-direct ional interface ; Source: Other Registry Afluria Qd administered Note: [facility] bi-directional interface ; Source: Other Registry Fluzone Quad 6mo or older administered Note: [facility] bi-direct ional interface ; Source: Other Registry Afluria Qd administered Note: [facility] bi-directional interface ; Source: Other Registry Fluzone Quad 6mo or older administered Note: [facility] bi-direct ional interface ; Source: Other Registry Afluria Qd administered Note: [facility] bi-directional interface ; Source: Other Registry Fluzone Quad 6mo or older administered Note: [facility] bi-direct ional interface ; Source: Other Registry Influenza, seasonal, injecta ble, preservative free administered Note: [facility] bi-direct ional interface ; Source: Other Registry Influenza, seasonal, injectable administe red Note: [facility] bi- directional interface ; Source: Other Registry Influenza, seasonal, injectable administe red Note: [facility] bi- directional interface ; Source: Other Registry Novel [id number], all formulations administered Note: [facility] bi-direct ional interface ; Source: Other Registry Influenza, seasonal, injectable administe red Note: [facility] bi- directional interface ; Source: Other Registry tetanus toxoid, reduced diphtheria toxoid, and acellular pertussis vaccine, adsorbed administered Note: [facility] b i-directional interface ; Source: Other Registry Influenza, seasonal, injectable administe red Note: [facility] bi- directional interface ; Source: Other Registry Influenza, seasonal, injectable administe red Note: [facility] bi- directional interface ; Source: Other Registry Influenza, seasonal, injectable administe red Note: [facility] bi- directional interface ; Source: Other Registry varicella virus vaccine administered Note : [facility] bi-directional interface ; Source: Other Registry varicella virus vaccine administered Note : [facility] bi-directional interface ; Source: Other Registry Payers Payer name Insurance type Covered green party ID Authoriza tion(s) Preferred One Admin [facility] CI [id number] Social History Type Description Quantity Date Captured Comments Sex Female Smoking Status No Information Chief Complaint And Reason For Visit No Information Reason For Referral Reason For Referral No Information History Of Present Illness Encounter Date Complaint History Of Prese nt Illness GI Symptoms or Concerns Functional Status Date Functional Assessmen t No Information Instructions Date Instruction Additional Infor matjohn Colon Polyps Related to Famil y history of colonic polyps Diverticulosis/Diverticulitis Re lated to Family history of colonic polyps Colon Cancer Prevention Related to Family history of colonic polyps Diverticulosis/Diverticulitis Re lated to Family history of colonic polyps Colon Polyps Related to Famil y history of colonic polyps Colon Cancer Prevention Related to Family history of colonic polyps High Fiber Diet Related to Famil y history of colonic polyps Hemorrhoids (External) Related t o Family history of colonic polyps Hiatal Hernia Related to Famil y history of colonic polyps Colon Cancer Prevention Related to Colorectal polyps high fiber diet Related to Color ectal polyps Diverticulosis/Diverticulitis Re lated to Colorectal polyps Colon Polyps Related to Color ectal polyps Hemorrhoids Related to Color ectal polyps Colon Cancer Prevention Related to Diverticulosis of colon Diverticulosis/Diverticulitis Re lated to Diverticulosis of colon High Fiber Diet Related to Diver ticulosis of colon Hemorrhoids Related to Diver ticulosis of colon Assessments Type Assessment Date No Information Patient Care Teams Name Effective Dates (start - stop) Status Members No Information
--- OUTSIDE RECORDS SUMMARY | 2024-04-30 02:29 | XMS_ITS | Clinical Summary ---
Author Organization [facility] Address [place], [place] [address] Care Team Providers Care Dye Lab Technician Name Role Phone Briana Faulkner Primary Care Provider [phone] Social History Tobacco Use Types Packs/Day Years Used Date Smoking Tobacco: Never Assessed Sex and Gender Information Value Date Recorded Sex Assigned at Not on file Gender Identity Not on file Sexual Orientation Not on file Plan of Treatment Health Maintenance Due Date Last Done Comments Tdap 01/23/1976 Depression screening for age 12+ 1977 HIV for age 15-65 01/23/1980 BMI (ht and wt on same day) for age 18+ 1983 Hepatitis C screening for ag e 18-79 1983 Tetanus booster 1985 Pap test for age 21-65 1986 Colonoscopy through age 75 2010 Lipids for age 45-75 2010 Mammogram for age 45-75 2010 Zoster (shingles) series for age 50+ (1 of 2) 2015 COVID-19 vaccine series (2023- season) 2024 10/06/2020, 09/17/2020 Influenza for age 50-64 03/23/2024 Pneumococcal series for age 6-64 Aged Out No longer eligible b ased on patient's age to complete this topic Care Teams Dye Lab Technician Relationship Specialty Start Date End Date Briana Faulkner PCP - General Family Practice 06/11/12
[2024-04-30] MEDS: ONDANSETRON 2 MG/ML inj 4 MG IVP (02:44)
--- NOTE | 2024-04-30 02:50 | ED_ITS ---
HPI - General Adult General Chief complaint: Abdominal Pain Stated complaint: syncope,abdominal pain Time Seen by Provider: 04/30/24 01:59 Source: patient Mode of arrival: ambulatory Limitations: no limitations History of Present Illness HPI narrative: 59-year-old female presents the emergency department for evaluation of shortness of breath, fatigue and nausea that progressed to left lower quadrant abdominal pain that radiates to the left upper quadrant later in the evening. Symptoms started around 9:00 a.m. which is about 18 hours prior to presentation. Denies prior history of similar symptoms. Says that she initially felt short of breath with laying down, feels better to sit up. Has been able to eat or drink, no vomiting. Feels like she should be having diarrhea but none is coming. Abdominal pain started this evening in the left lower quadrant, now radiating to the left upper quadrant area. No dysuria. Has had kidney stones in the past, last being about a year and half ago that has required lithotripsy and stenting per her description. No dysuria or hematuria noted, no flank pain. Feels lightheaded and presyncopal but has not had loss of consciousness. Nonsmoker. No trauma or injury. She has had a prior colonoscopy earlier this year, had some diverticula but no other abnormalities. Reports that she has had several prior endoscopies as well normal. She tried taking 1 Zofran which did not improve her nausea or abdominal pain. Has not tried Tylenol or ibuprofen. No chest pain but does feel short of breath when laying flat, not on exertion. Feels better leaning forward. No prior history of cardiac disease. No prior history of DVT or PE. Past medical history notable for migraine disorder per her report, hypothyroidism and GERD. Home meds are amitriptyline, propranolol, levothyroxine and omeprazole. No known drug allergies. Nonsmoker. Multiple prior abdominal surgeries including 2 C sections, oophorectomy, hysterectomy and cholecystectomy, none of which were recent. Denies complications from these. ROS notable for the generalized and abdominal symptoms as above, otherwise denies times 12 systems. Related Data Allergies Allergy/AdvReac Type Severity Reaction Status Date / Time No Known Drug Allergies Allergy Verified 04/30/24 01:28 Exam Const: Vital Signs, click to edit/add: Vital Signs - 24 hr 04/30/24 01:25 Temperature 97.8 F Pulse Rate [Left P ulse Oximeter] 97 Respiratory Rate 20 Blood Pressure [Ri ght Upper Arm] 119/87 Pulse Oximetry 99 Oxygen Delivery Me thod Room Air Documenting provider has reviewed patient's vital signs: yes Common normals: no apparent distress and alert General appearance: well kempt Other: Appears mildly uncomfortable but good historian. Well nourished and well hydrated. HENMT: Common normals: normocephalic Head and scalp: normocephalic Face and sinus: normal facial exam Mouth: oral and palatal mucosa normal Throat: posterior oropharynx normal Eye: Common normals: conjunctivae normal General eye: normal appearance of both eyes Conjunctiva: conjunctiva(e) normal Neck & C-Spine: Common normals: full ROM and no lymphadenopathy Resp: Common normals: normal respiratory effort, no use of accessory muscles and clear to auscultation bilaterally Effort & inspection: able to speak in complete sentences Auscultation: clear to auscultation bilaterally Cardio: Common normals: regular rate, regular rhythm, S1 normal heart sound, S2 normal heart sound and no murmurs Rate: regular rate Rhythm: regular rhythm Heart sounds: S1 normal and S2 normal GI: Common normals: Normal to inspection, nondistended, normoactive bowel sounds present, soft to palpation, no hepatosplenomegaly and no masses Palpation: soft and no hepatosplenomegaly Other: Tender to suprapubic area more so than left lower quadrant. Certainly no rebound tenderness or guarding. Extremity: Common normals: normal to inspection, full ROM, normal capillary refill and no pedal edema Neuro: Sensorium/orientation: alert Speech: speech normal Motor exam: strength 5/5 throughout and no movement abnormalities noted Psych: Common normals: thought process normal Appearance: well kempt Attitude: engaged Mood and affect: euthymic mood Thought process: normal thought process Insight: insight good Judgement: judgment good Skin: Common normals: no rashes or lesions noted General skin exam: no rashes or lesions noted Course Course ED Course: 59-year-old female with vague symptoms, worsening in nature. Wide differential diagnosis. Initial shortness of breath and presyncopal is worrisome for coronary or great vessel process. Cannot exclude pulmonary embolism, acute coronary syndrome, heart failure, viral process. Abdominal symptoms are obscuring these thoughts any include kidney stone, ureteral stone, diverticulitis, colitis, pancreatitis, unusual presentation of GERD, aortic disease, hernia, obstruction, amongst many others. She does seem rather uncomfortable. Will start with EKG, rn cardiac cath, 4 mg of Zofran for nausea. We are in conservation mode for IV fluids and she does not meet current criteria. Otherwise I would have given [address] of the abdomen and pelvis, urinalysis, typical abdominal labs as well as troponins and D-dimer. Await findings. May also require chest CT. Reevaluation(s) Time of Reevaluation #1: 03:49 Reevaluation #1: Patient still feeling nauseated and lousy. Unfortunately because of IV fluid restrictions, I cannot give her IV fluids. She is understanding of this as this is a nationwide shortage. She did not find the Zofran overly helpful but she is not vomiting. We reviewed all of her normal very extensive labs and her CT scan. These are all reassuring. I suspect this is an influenza like illness. She does remember that she also got her flu shot yesterday and wonders if the to combining may be contributing to her symptoms. I tell her that this is certainly a possibility. I do still have concerned that she is brewing a larger illness but they are just are not any convincing signs of severity or need for medical intervention at this time. Counseled on alarm symptoms that would warrant ED repeat visit, she verbalizes understanding and agreement. Will give her additional supply of Zofran to have at home. Re-evaluation if not improving in 48 hours. Push fluids. Slowly advance diet if tolerated. She verbalizes understanding and agreement. Written instructions provided. Vital Signs Vital signs: Initial Vital Signs Temperature 97.8 F 04/30/24 01:25 Temperature Source Temporal Artery Scan 04/30/24 01:25 Pulse Rate 97 04/30/24 01:25 Pulse Rhythm Regular 04/30/24 01:25 Respiratory Rate 20 04/30/24 01:25 Blood Pressure 119/87 04/30/24 01:25 Blood Pressure Mean 97 04/30/24 01:25 Blood Pressure Position Sitting 04/30/24 01:25 Pulse Oximetry 99 04/30/24 01:25 Oxygen Delivery Method Room Air 04/30/24 01:25 Vital Signs Temperature 97.8 F 04/30/24 01:25 Pulse Rate 97 04/30/24 01:25 Respiratory Rate 20 10/09/24 01:25 Blood Pressure 119/87 04/30/24 01:25 Pulse Oximetry 99 04/30/24 01:25 Oxygen Delivery Method Room Air 04/30/24 01:25 Temperature 97.8 F 04/30/24 01:25 Pulse Rate 97 04/30/24 01:25 Respiratory Rate 20 04/30/24 01:25 Blood Pressure 119/87 04/30/24 01:25 Pulse Oximetry 99 04/30/24 01:25 Oxygen Delivery Method Room Air 04/30/24 01:25 Medications Administered Medications: Discontinued Medications Generic Name Dose Route Start Last Admin Trade Name Vasileq PRN Reason Stop Dose Admin Ondansetron HCl 4 mg 04/30/24 02:15 04/30/24 02:44 Ondansetron 2 Mg/Ml Inj IVP 04/30/24 02:16 4 mg ONCE ONE Administration Medical Decision Making Lab Data Lab results reviewed: Yes I reviewed the patient's lab results Lab results narrative: Labs very reassuring. No leukocytosis, anemia, electrolyte abnormalities, elevated D-dimer, abnormal liver enzymes, inflammatory marker elevation or signs of convincing bladder infection. This is great news. Labs: Lab Results 04/30/24 04/30/24 04/30/24 Range/Units 02:11 02:25 02:35 WBC 8.12 (4.50-11.00) K/uL RBC 5.08 (4.00-5.20) m/uL Hgb 15.6 (12.0-16.0) gm/dL Hct 47.2 (33.0-51.0) % MCV 93 (80-100) fL MCH 31 (26-34) pg MCHC 33 (32-36) gm/dL RDW Coeff of Stefan 12.2 (11.5-15.5) % Plt Count 342 (140-440) K/uL Neut % (Auto) 73.0 H (42.0-72.0) % Lymph % (Auto) 17.2 L (20-44) % Stephens % (Auto) 8.6 (0.0-11.0) % Eos % (Auto) 0.6 (0.0-7.0) % Baso % (Auto) 0.5 (0.0-3.0) % Neut # (Auto) 5.90 (1.7-7.0) K/uL Lymph # (Auto) 1.40 (0.90-2.90) K/uL Stephens # (Auto) 0.70 (0.00-0.90) K/UL Eos # (Auto) 0.05 (0.00-0.50) K/uL Baso # (Auto) 0.04 (0.00-0.30) K/uL Abs Immat Gran (auto) 0.01 (0.00-0.30) K/uL Imm/Tot Granulo (auto) 0.1 % D-Dimer Quant (PE/DVT) 0.23 (0.00-0.50) ug/ml Sodium 137 (135-149) mmol/L Potassium 3.6 (3.6-5.1) mmol/L Chloride 105 (96-114) mmol/L Carbon Dioxide 22 (20-32) mmol/L Anion Gap 10 (7-15) mEq/L BUN 13 (7-30) mg/dL Creatinine 0.7 (0.5-1.5) mg/dL Estimated Creat Clear 81.01 Estimated GFR 100 ml/min Glucose 142 H (60-115) mg/dL Lactate 1.5 (0.5-1.9) mmol/L Calcium 9.4 (8.4-10.6) mg/dL Total Bilirubin 0.7 (0.1-1.5) mg/dL AST 22 (12-35) U/L ALT 17 (4-35) U/L Alkaline Phosphatase 88 (40-150) U/L C-Reactive Protein 0.7 (0.5-1.0) mg/dL Total Protein 7.5 (6.0-8.3) g/dL Albumin 4.3 (3.3-5.0) g/dL Lipase 57 (23-300) U/L Urine Color Yellow (Yellow) Urine Appearance Clear (Clear) Urine pH 7.0 (5.0-8.5) Ur Specific Nordman 1.015 (1.000-1.030) Urine Protein Negative (Negative) Urine Glucose (UA) Negative (Negative) Urine Ketones 2+ A (Negative) Urine Blood Negative (Negative) Urine Nitrite Negative (Negative) Urine Bilirubin Negative (Negative) Urine Urobilinogen 0.2 (0.2-1.0) Ur Leukocyte Esterase 1+ A (Negative) Urine RBC 0-2 (0-2) Urine WBC 0-2 (0-5) Ur Squamous Epith Cells Few (None-Few) Urine Bacteria Few A (None) POC Troponin I 0.01 (0.01-0.04) ng/ml Imaging Data CT scan - abdomen: Attestation: I have reviewed the pertinent imaging results. My impression: Normal CT Radiologist's impression: IMPRESSION: No acute findings. Multiple colonic diverticuli, but no definite evidence of acute diverticulitis. ECG Data Attestation: I personally reviewed and interpreted this ECG as follows: Prior ECG tracings: not available for review Interpretation: Normal sinus rhythm, rate of 79. Other than some anterior T-wave inversion, no major abnormalities. No LVH criteria, normal intervals and axis otherwise. Borderline EKG. Discharge Plan Discharge Clinical Impression: Viral illness Patient Disposition: Home w/ Parent or Adult Condition: Stable Instructions: Viral Syndrome (ED) Additional Instructions: i Am sorry that we were not able to make you feel much better today. Thankfully, your labs and CT scans do not show any dangerous pathology. In fact they were all very reassuring. I am glad that there is no vomiting but I am sorry that the nausea persists. I do suspect that this is caused by a viral illness. Most of the patients that we are testing are negative for COVID and influenza. I suspect that this is either a parainfluenza or adenovirus going around that is making people feel so ill. Several people that have also gotten their flu shot at the start of this viral illness do seem to have amplified symptoms. Keep trying to push fluids by mouth. I will give you an additional supply of Zofran to use as needed. I would strongly recommend that you use Tylenol 1000 mg every 6 hours and or ibuprofen 600 mg every 6 hours to help with those body aches. It may help you hold down more fluids as well. Try small bites of bland foods every few hours. If you are urinating at least 4 times daily, you are maintaining hydration. If you have any severe worsening, please come back to the emergency department. Most have severe symptoms for about 3 days and then minor symptoms for about 3-4 days after. I would recommend no work today, likely also . Activity Level: Light activity Discharge Diet: Regular Follow Up/Referrals: Naomi Ramirez MD [Primary Care Provider] - Stand Alone Forms: [employer] Info Instructions
[2024-04-30 02:56] LABS: Lactate* 1.5 mmol/L (0.5-1.9)
[2024-04-30 02:57] LABS: Basophils Absolute Auto 0.04 K/uL (0.00-0.30); Basophils Percent Auto 0.5 % (0.0-3.0); Eosinophils Absolute Auto 0.05 K/uL (0.00-0.50); Eosinophils Percent Auto 0.6 % (0.0-7.0); Hematocrit 47.2 % (33.0-51.0); Hemoglobin* 15.6 gm/dL (12.0-16.0); Immature Granulocytes Abs Auto 0.01 K/uL (0.00-0.30); Immature Granulocytes Pct Auto 0.1 %; Lymphocytes Percent Auto 17.2 % (20-44); Mean Corpuscular HGB Conc 33 gm/dL (32-36); Mean Corpuscular Hemoglobin 31 pg (26-34); Mean Corpuscular Volume 93 fL (80-100); Monocytes Percent Auto 8.6 % (0.0-11.0); Platelet Count* 342 K/uL (140-440); RDW Coefficient of Variation % 12.2 % (11.5-15.5); Red Blood Count 5.08 m/uL (4.00-5.20); White Blood Count* 8.12 K/uL (4.50-11.00)
[2024-04-30 02:59] LABS: Appearance Urine Clear (Clear); Bilirubin Urine Negative (Negative); Blood Urine Negative (Negative); Color Urine Yellow (Yellow); Glucose Urine Negative (Negative); Ketones Urine 2+ (Negative); Leukocyte Esterase Urine 1+ (Negative); Nitrite Urine Negative (Negative); Protein Urine Negative (Negative); Specific Gravity Urine 1.015 (1.000-1.030); Urobilinogen Urine 0.2 (0.2-1.0)
[2024-04-30 03:00] LABS: Slide Review Reflex No
[2024-04-30 03:05] LABS: Bacteria Urine Few; RBC Urine 0-2 (0-2); Squamous Epithelial Cell Urine Few (None-Few); WBC Urine 0-2 (0-5)
[2024-04-30 03:12] LABS: Albumin* 4.3 g/dL (3.3-5.0); Chloride* 105 mmol/L (96-114); Potassium* 3.6 mmol/L (3.6-5.1); Sodium* 137 mmol/L (135-149)
[2024-04-30 03:14] LABS: Bilirubin Total* 0.7 mg/dL (0.1-1.5); Creatinine* 0.7 mg/dL (0.5-1.5); Est. Creatinine Clearance* 81.01; Estimated Glomerular Filt Rate 100 ml/min
[2024-04-30 03:15] LABS: Alanine Aminotransferase* 17 U/L (4-35); Alkaline Phosphatase* 88 U/L (40-150); Anion Gap 10 mEq/L (7-15); Aspartate Amino Transferase* 22 U/L (12-35); Blood Urea Nitrogen* 13 mg/dL (7-30); Carbon Dioxide* 22 mmol/L (20-32); Glucose* 142 mg/dL (60-115); Lipase* 57 U/L (23-300); Total Protein* 7.5 g/dL (6.0-8.3)
[2024-04-30 03:16] LABS: Calcium* 9.4 mg/dL (8.4-10.6)
[2024-04-30 03:18] LABS: C Reactive Protein* 0.7 mg/dL (0.5-1.0)
[2024-04-30 03:20] LABS: D Dimer Quantitative* 0.23 ug/ml (0.00-0.50)
[2024-04-30 03:23] LABS: Troponin, Point-of-Care* 0.01 ng/ml (0.01-0.04)
== END 2024-04-30 04:03 | disposition home or self-care (01) ==
PROVIDERS: Emergency Provider Family Medicine; PCP Family Medicine
DX: B34.9 Viral infection, unspecified (principal)
CPT/HCPCS: 36415; 74177; 80053; 81001; 81003; 83605; 83690; 84484; 85025; 85379; 86140; 87086; 96374; 99284; J2405; Q9967